=== PATIENT | male | born 1945 | race Caucasian/White ===

== ENCOUNTER → 2016-06-11 | Outpatient (CLI) | payer OTHER ==
[~2016-06-11] MED LIST: ACET-1311 PO; ASPI81TA28 PO; CIPR-255 PO; IBUP-1427 PO; LEVO125T72 PO; OMEG10007 PO; PHEN-876 PO
--- NOTE | 2016-06-11 10:58 | DIAGNOSTIC IMAGING REPORT ---
RENAL ULTRASOUND HISTORY: Hematuria PAINLESS HEMATURIA, HX SMOKING COMPARISON: None. FINDINGS: Right kidney: Maximum dimension 11.4 cm. No evidence for hydronephrosis. Left kidney: Maximum dimension 11.7 cm. No evidence for hydronephrosis. Normal corticomedullary differentiation and cortical thickness. Bladder: Polyp versus sludge ball/hematoma posterior aspect of the bladder. Mild bladder wall trabeculation. IMPRESSION: 1. Normal renal ultrasound. 2. Possible polypoid lesion posterior bladder wall versus debris/sludge. 3. Cystoscopy is suggested 4. Mild bladder wall trabeculation Electronically signed by: Christian Gardner M.D. 06/11/2016 10:56 AM Dictated Date/Time: 06/11/2016 10:54 AM
== END | disposition home or self-care (01) ==
LOC: C.ULTR 10:15
PROVIDERS: ATTEND Nurse Practitioner Family
DX: R31.9 Hematuria, unspecified (principal)

== ENCOUNTER 2016-07-08 11:45 | Day surgery (SDC) | payer OTHER ==
[2016-06-25 08:44] VITALS: BMI 27.0
--- NOTE | 2016-06-25 09:19 | PAT Medication Instructions ---
Service Date Jun 25, 2016. Current Home Medication List Levothyroxine Sodium (Synthroid), 125 MCG PO QAM Medication Instructions For Your Scheduled Surgery - Take the following medications the morning of surgery with a sip of water: Levothyroxine Sodium (Synthroid), 125 MCG PO QAM If you have any questions please call us at [phone] or [phone] ( [place]) or [phone]
[2016-06-25 09:47] LABS: URINE APPEARANCE CLEAR (CLEAR); URINE BILIRUBIN NEG (NEG); URINE COLOR YELLOW; URINE NITRITE NEG (NEG); URINE PH 5.5 (4.5-7.5); UROBILINOGEN NEG (NEG)
[2016-06-25 09:48] LABS: BASO % 0.3 %; BASO ABS # 0.02 K/uL (0-0.2); COMPLETE YES; EOS % 1.7 %; HEMATOCRIT 42.1 % (42-52); IG% 0.2 %; LYMPH % 37.2 %; LYMPH ABS # 2.43 K/uL (1.2-3.4); MEAN CELL VOLUME 92.1 fL (80-100); MEAN CORPUSCULAR HEMOGLOBIN 31.9 pg (25-34); MEAN CORPUSCULAR HGB CONC 34.7 g/dl (32-36); MEAN PLATELET VOLUME 10.6 fL (7.4-10.4); MONO % 5.1 %; NEUT % 55.5 %; PLATELET COUNT 187 K/uL (130-400); RED BLOOD COUNT 4.57 M/uL (4.7-6.1); WHITE BLOOD COUNT 6.53 K/uL (4.8-10.8)
[2016-06-25 09:50] LABS: MANUAL MICROSCOPIC REQUIRED? NO; REVIEW REQ? NO
--- NOTE | 2016-06-25 09:56 | DIAGNOSTIC IMAGING REPORT ---
CHEST PREADMISSION(PA/LAT) CLINICAL HISTORY: Preoperative chest COMPARISON STUDY: 02/25/2013 FINDINGS: The cardiac and mediastinal contours are normal. There is no evidence of focal pulmonary consolidation. There is no evidence of failure. No pleural effusions are visualized.[ IMPRESSION: No active disease in the chest. Electronically signed by: Serjio Rojo M.D. 06/25/2016 9:54 AM Dictated Date/Time: 06/25/2016 9:50 AM
[2016-06-25 10:16] LABS: CALCIUM 8.7 mg/dl (8.5-10.1); CREATININE 1.1 mg/dl (0.60-1.40); POTASSIUM 3.8 mmol/L (3.5-5.1)
[~2016-07-08] VITALS: Ht 180.3 cm; Wt 90.4 kg
[~2016-07-08 11:45] MED LIST changes: -ACET-1311 PO; -ASPI81TA28 PO; +ATROPINE SULFATE 0.1 MG/ML 5ML SYR IV PRN; -CIPR-255 PO; +CIPROFLOXACIN / D5W 400 MG IV SCH; +CIPROFLOXACIN 400MG / D5W IV SCH; +EpHEDrine SULFATE INJ 50 MG/ML AMP IV PRN; +FENTANYL CITRATE INJ 50 MCG/1 ML 2 ML VIAL IV PRN; +HYDROmorphone INJ 1 MG/ML SYR IV PRN; -IBUP-1427 PO; +LABETALOL HCL IV 5 MG/ML 20ML IV PRN; +LACTATED RINGER'S 1000ML 1,000 ML IV SCH; +MEPERIDINE HCL 25 MG/ML CARP IV PRN; -OMEG10007 PO; +ONDANSETRON INJ 2 MG/ML 2 ML VIAL IV PRN; -PHEN-876 PO
[2016-07-08 12:01] VITALS: BP 147/80; PULSE 54; TEMP 36.6; O2SAT 96; Ht 180.3 cm; Wt 90.4 kg
[2016-07-08] MEDS ORDERED: DEXAMETHASONE SOD INJ 4 MG/ML VIAL ONE (14:16)
[2016-07-08] MEDS ORDERED: PROPOFOL IV EMULSION 10 MG/ML 20 ML VIAL IV ONE (14:16)
[2016-07-08] MEDS ORDERED: LIDOCAINE HCL 2% 2 ML VIAL (20MG/ML) ONE (14:16)
[2016-07-08] MEDS ORDERED: ONDANSETRON INJ 2 MG/ML 2 ML VIAL ONE (14:16)
[2016-07-08] MEDS ORDERED: MIDAZOLAM HCL 1 MG/ML 2ML VIAL ONE (14:16)
[2016-07-08] MEDS ORDERED: FENTANYL CITRATE INJ 50 MCG/1 ML 2 ML VIAL ONE (14:17)
--- NOTE | 2016-07-08 14:17 | History & Physical Bridge Note ---
H&P Re-Evaluation Bridge Note: I have examined the patient, reviewed the History & Physical and in the interval since the performance of the History & Physical I have noted the following changes of clinical significance: No changes noted
--- NOTE | 2016-07-08 15:05 | [facility] Post Operative Brief Note ---
Immediate Operative Summary Operative Date Jul 08, 2016. 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 small central stalk connecting the tumor to the bladder wall. No secondary tumors appreciated. High bladder neck with moderate obstruction from the prostate. Tight meatus/ fossa navicularis. Specimens Bladder tumor - routine pathology Drains none Anesthesia Gen Complication(s) None Disposition Recovery Room / PACU (stable)
[2016-07-08] MEDS ORDERED: PHEN-876 PO (15:06)
[2016-07-08] MEDS ORDERED: CIPR-255 PO (15:06)
[2016-07-08] MEDS ORDERED: SODIUM CHLORIDE 0.9% 1000ML 1,000 ML IV SCH (15:07)
[2016-07-08] MEDS ORDERED: PHENAZOPYRIDINE HCL 200 MG TAB PO STA (15:07)
--- NOTE | 2016-07-08 15:07 | Discharge Instructions ---
Discharge Instructions Date of Service Jul 08, 2016. Admission Reason for Admission: Bladder Tumor Discharge Discharge Diagnosis / Problem: Treat bladder tumor. Discharge Goals Goal(s): Decrease discomfort, Improve function, Increase independence, Improve disease control, Prevent Disease Progression Activity Recommendations Activity Limitations: resume your previous activity Lifting Limitations: none Exercise/Sports Limitations: none May Resume Sexual Activity: when tolerated Shower/Bathe: no limitations Driving or Machine Use: no limitations . Instructions / Follow-Up Instructions / Follow-Up Please keep your previously scheduled follow up appointment with Dr. Cuevas Discharge Diet Recommended Diet: Regular Diet Procedures Procedures Performed: cystoscopy; TURBT Pending Studies Studies pending at discharge: no Medical Emergencies . Who to Call and When: Medical Emergencies: If at any time you feel your situation is an emergency, please call 911 immediately. . Non-Emergent Contact Non-Emergency issues call your: Urologist Call Non-Emergent contact if: you have a fever, temperature is above 101.5, your pain is not controlled, your pain is worsening . . "Provider Documentation" section prepared by Williams Carlisle. VTE Core Measure Inpt VTE Proph given/why not?: Treatment not indicated
[2016-07-08] MEDS ORDERED: OXYCODONE/ACETAMINOPHEN 5-325 TAB PO PRN ×2 (15:15)
--- NOTE | 2016-07-08 15:49 | Anesthesiology Progress Note ---
Anesthesia Post Op Note Date & Time Jul 08, 2016 at 15:49 Vital Signs Pain Intensity: 0 Vital Signs Past 12 Hours Date Time Temp Pulse Resp B/P Pulse Ox O2 Delivery O2 Flow Rate FiO2 07/08/16 15:40 56 16 133/83 98 Room Air 07/08/16 15:31 64 16 170/84 95 Room Air 07/08/16 15:21 63 16 139/74 100 Mask 10 07/08/16 15:14 36.4 58 14 138/72 100 Mask 10 07/08/16 12:01 36.6 54 18 147/80 96 Room Air Notes Mental Status: alert / awake / arousable, participated in evaluation Pt Amnestic to Procedure: Yes Nausea / Vomiting: adequately controlled Pain: adequately controlled Airway Patency, RR, SpO2: stable & adequate BP & HR: stable & adequate Hydration State: stable & adequate Anesthetic Complications: no major complications apparent
[2016-07-08 15:55] VITALS: BP 133/81; PULSE 59; TEMP 36.5; O2SAT 95
[2016-07-08] MEDS ORDERED: EpHEDrine SULFATE INJ 50 MG/ML AMP IV PRN (16:00)
[2016-07-08] MEDS ORDERED: ATROPINE SULFATE 0.1 MG/ML 5ML SYR IV PRN (16:00)
[2016-07-08 16:30] VITALS: BP 160/72; PULSE 64; TEMP 36.8; O2SAT 96
--- NOTE | 2016-07-08 16:46 | OPERATIVE REPORT ---
DATE OF OPERATION: 07/08/2016 PREOPERATIVE DIAGNOSIS: Bladder tumor. POSTOPERATIVE DIAGNOSIS: Bladder tumor. PROCEDURE PERFORMED: Cystoscopy, transurethral resection of medium bladder tumor. ANESTHESIA: General. ESTIMATED BLOOD LOSS: Zero. URINE OUTPUT: Not recorded. SPECIMENS: Bladder tumor for routine pathology. DRAINS: There were no drains. COMPLICATIONS: There were no complications. DESCRIPTION OF THE PROCEDURE: Andres Valentine was identified in the preoperative holding area. Appropriate informed consents were reviewed and completed and the patient was transported to the operating suite. Upon arrival, he received appropriate preoperative antibiotics in the form of ciprofloxacin and general anesthesia. He was placed in dorsal lithotomy position where he was sterilely prepped and draped in standard fashion. I began the case by gently attempting to insert a 24-Uzbek resectoscope with 30 degree lens and visual obturator. His meatus was slightly tight and required gentle dilation to be able to allow the scope to pass. I subsequently passed without difficulty. He had no other strictures within the urethra. His prostate was relatively enlarged with a very high bladder neck, but no significant intravesical median lobe. Full inspection of the bladder was carried out at that time with an easily identified papillary tumor arising from the right lateral wall approximately 1 cm lateral to the right ureteral orifice continued along the same line as the trigonal ridge. There did not appear to be any other satellite or secondary tumors visible at any point throughout the bladder and at the base of this tumor was able to visualize a relatively narrow stalk that was leading to the tumor itself despite the fact that the papillary portion was quite broad. Following my full inspection, I exchanged the visual obturator for a resecting loop and I was able to place this loop against the base of the trunk of the tumor and resected flush with the bladder. I fulgurated the base of this and I inspected the bladder after irrigating all bladder tumor out of the bladder. There were no other tumors appreciated. The tumor appeared to be treated entirely. There was no encroachment upon the ureteral orifice. There was excellent hemostasis throughout. At that time, I took pictures to document the post-resection appearance, I had previously had taken pictures to document pre-resection appearance, I emptied the bladder completely and withdrew the scope. The patient was reversed from anesthesia and taken to the PACU in stable condition. There were no complications. I attest to the content of the Intraoperative Record and any orders documented therein. Any exceptions are noted below. MTDD
[2016-07-08 16:50] VITALS: BP 162/75; PULSE 63; TEMP 36.3; O2SAT 98
[2016-07-08] MEDS ORDERED: TAMSULOSIN HCL 0.4 MG CAP PO SCH (21:00)
== END 2016-07-08 17:00 | disposition home or self-care (01) ==
LOC: C.ACU 11:45
PROVIDERS: ATTEND Urology
DX: C67.2 Malignant neoplasm of lateral wall of bladder (principal); Z87.891 Personal history of nicotine dependence

== ENCOUNTER 2024-02-21 12:19 | Inpatient (IN) ==
--- OUTSIDE RECORDS SUMMARY | 2024-02-21 12:24 | External Medical Summary | Continuity of Care Document ---
Author Name Unknown Organization [facility] [address] [facility] Address [address] [place], [place] [id number] Care Team Providers Care Rn Staff Name Role Phone Melissa Lawson Primary Care Physician [phone] Encounter [facility] [id number] Date(s): 02/16/24 - 02/16/24 [facility] [address], [address] [place] [address] [phone] Encounter Diagnosis Afib(Discharge Diagnosis) - 02/16/24 Aortic valve stenosis, severe(Discharge Diagnosis) - 02/16/24 Coronary artery disease involving stebbins heart(Discharge Diagnosis) - 02/16/24 Dyslipidemia(Discharge Diagnosis) - 02/16/24 S/P CABG x 4(Discharge Diagnosis) - 02/16/24 S/P aortic valve replacement with tissue(Discharge Diagnosis) - 02/16/24 HTN (hypertension)(Discharge Diagnosis) - 02/16/24 PAF (paroxysmal atrial fibrillation)(Discharge Diagnosis) - 02/16/24 Discharge Disposition: Home or Self Care Attending Physician: DO Butler Jason D Allergies, Adverse Reactions, Alerts Substance Criticality Severity Reaction Reaction Severity Status thimerosal topical A ctive benzalkonium chloride topical Active Allergy Not found in Search 1 red onions hives hot dogs Active 1Rash Assessment and Plan Extracted from: Title:Cardiology Office Visit Note Author:DO Butler Jason D Date:02/16/24 1.Afib 2.Aortic valve stenosis, severe 3.Coronary artery disease involving stebbins heart 4.Dyslipidemia 5.HTN (hypertension) 6.S/P aortic valve replacement with tissue 7.S/P CABG x 4 He is in sinus rhythm on his EKG post maze procedure during his AVR CABG. We discussed the importance of remaining on warfarin for the next 3 months. At that point he can wear an event recorder for a month and if he has no A-fib we can discuss stopping his warfarin. I did discuss with him though even if he has no A-fib over that 30-day. That does not mean he is not having any asymptomatic A-fib that increases his risk of cardioembolic events. He is rather adamant he wants to come off warfarin. We discussed the importance of 81 mg of aspirin. We also discussed the importance of statin therapy. He does not wish to consider statins at this point. We discussed red yeast rice as an option as well as oatmeal, flaxseed, and Metamucil. His seems agreeable to make the dietary changes. We discussed lifting restrictions including 10 pounds for the first 6 weeks and 20 pounds for the second 6 weeks. We discussed no shoveling snow long-term. We also discussed he will need antibiotics prior to the dentist and should not visit the dentist for the next 90 days. His blood pressure was on the higher side today. He does not wish to restart his valsartan at this point. I will see him back in 3 weeks and if his blood pressures are elevated will initiate valsartan at that point and revisit the need for cholesterol-lowering therapy. We discussed the importance of a flu shot, COVID booster, and RSV vaccination. He did not wish to proceed with this at this time. We had a long discussion with regards to the fact that he went through a major surgery with upfront risk and our goal is to reduce the risk of long-term complications. We discussed the importance of medical therapy with regards to that. I discussed with him 1 would hate to go through big surgery and need angioplasty and stenting in the next couple of years because he was unwilling to take an appropriate cardiac regiment. I discussed with him he should not start cardiac rehab for another 2 to 3 weeks until he completes physical therapy at home. Will send his information to [facility] as it is taking about a month to get people enrolled. See him back in 3 weeks with repeat laboratory studies including a hemoglobin and iron profile given the fact that his hemoglobin was 9.9 when he left and was as low as the 70s before he received a blood transfusion. Although he has some shortness of breath his lungs were clear and clinically he did not look like he was in heart failure. Immunizations Given and Recorded Vaccine Date Status Refusal Reason influenza virus vaccine, inactivated 04/10/22 Timothy rded influenza virus vaccine, inactivated 02/28/21 Timothy rded influenza virus vaccine, inactivated 02/07/20 Timothy rded SARS-CoV-2 mRNA (Pfizer 12+) bivalent 1 04/10/22 R ecorded SARS-CoV-2 (COVID-19) mRNA BNT-162b2 vax 02/28/21 Recorded SARS-CoV-2 (COVID-19) mRNA BNT-162b2 vax 06/17/20 Recorded SARS-CoV-2 (COVID-19) mRNA-1273 vaccine 05/27/20 R ecorded zoster vaccine, inactivated 11/04/18 Recorded zoster vaccine, inactivated 2 06/04/18 Recorded tetanus/diphtheria/pertuss, acel (Tdap) 10/04/13 G iven 1Result Comment: 2022-04-10: Historical information-source unspecified 2Result Comment: 2018-07-07: Historical information-source unspecified Medications aspirin 81 mg oral delayed release tablet Start: 02/09/24 8:29:00 AM EDT, 1 tab, PO, Daily Start Date: 02/09/24 Status: Ordered levothyroxine 125 mcg (0.125 mg) oral tablet Start: 10/13/23 9:30:00 AM EDT, 1 tab, PO, Daily, Disp# 90 tab, Refills: 3, Pharmacy: [facility] [id number] Start Date: 10/13/23 Status: Ordered warfarin 5 mg oral tablet Start: 03/20/23 10:47:00 AM EST, 1 tab, PO, Daily Start Date: 03/20/23 Status: Ordered Mental Status 02/16/24 Barriers to Learning one year None evide nt Mandatory Health Literacy Documentation Yes Health Literacy Communication Barriers N ever Primary Language [place] Problem List Condition Confirmation Course Effective Dates Status H ealth Status Informant Aortic stenosis Confirmed Active Afib Confirmed Active Carotid artery plaque Confirmed Active Coronary artery disease involving stebbins heart Confirmed Active Osteoarthritis of knee Confirmed Active Atypical rash Confirmed Active Ganglion/synovial cyst - ankle/foot Confirmed Active S/P CABG x 4 Confirmed Active S/P aortic valve replacement with tissue Confirmed Active Dyslipidemia Confirmed Active HTN (hypertension) Confirmed Active Hypothyroidism Confirmed Active Myalgia Confirmed Active Aortic valve stenosis, severe Confirmed Active Tobacco user Confirmed Active Diagnosis Diagnosis Type Effective Dates Health Status Clinical Service Informant Aortic valve stenosis, severe Discharge Diagnosis 02/16/24 Afib Discharge Diagnosis 02/16/24 HTN (hypertension) Discharge Diagnosis 02/16/24 Coronary artery disease involving stebbins heart Discharge Diagnosis 02/16/24 S/P CABG x 4 Discharge Diagnosis 02/16/24 PAF (paroxysmal atrial fibrillation) Discharge Diagnosis 02/16/24 Non-Specified Dyslipidemia Discharge Diagnosis 02/16/24 S/P aortic valve replacement with tissue Discharge Diagnosis 02/16/24 Procedures Procedure Date Related Diagnosis Body Site Status Colonoscopy 1, 2 11/18/16 Complete d Cystoscopy and transurethral resection of bladder tumor 07/08/16 Completed s/p thyroidectomy 3 1966 Compl eted Ankle- right - bone spur 4 Completed Arthroscopy of knee- right 5 Completed Colonoscopy Completed R pointer/index finger right index finger fusion 6 Completed 1PATHOLOGY: 1. rectum, polypectomy: hyperplastic polyps 2- Diverticulosis in the sigmoid colon. - Non-bleeding internal hemorrhoids. - One 3 mm polyp in the rectum, removed with a cold biopsy forceps. Resected and retrieved. [id number] nodule 4right 5cannot remember date or knee 6right index finger fusion Vital Signs Most recent to oldest [Reference Range]: 1 Patient Weight 92.2 kg (02/16/24 9:17 AM) Heart Rate 66 bpm (02/16/24 9:17 AM) Blood Pressure 128/60mmHg (02/16/24 9:17 AM) BP Location # 1 Left Arm (02/16/24 9:17 AM) Social History Social History Type Response Tobacco Former smoker, Cigar ettes 1 Smoking Status Former Smoker, quit > 1 yr Sex Male Sex Representation Male (finding) 1Quit 10-15 years ago. Implantable Device List Procedure Provider Procedure Date Device Type Site Unknown Unknown 02/03/24 Unknown Unknown Device Identifier Serial Number Lot or Batch Number Manufacturing Date Expiration Date Distinct Identification Code MRI Safety Implantable Status Assigning Authority Unknown Unknown [id number] Unknown 06/19/26 Unknown Unknown Active Unkno wn Unknown Unknown n/a Unknown 01/26/27 Unknown Unknown Active Unkn own EKG study * Contributor_system, MUSE01: VERIFY, PERFORM Event Display: EKG Authored Date: [id number] Please click on link to see image. Cardiology Outpatient Note * DO Butler Jason D: PERFORM Event Display: Cardiology Outpt Note Authored Date: [id number] Primary Care Provider MD Renny, Melissa Arrington Chief Complaint f/u cabg avr 02/03/24 History of Present Illness He was 2 weeks out from bypass surgery today when I saw him. He actually looks better than what 1would anticipate. He denies any chest pain or chest pressure. He has shortness of breath with activity but his wifeconfirms she thinks that this is getting better. He denies any orthostatic symptoms. He has a little bit of swelling in his left leg from his veinharvest site. He has no fevers or chills or sweats. His incisions are intact without any drainage or erythema. He is unaware of any palpitations or fluttering. As you remember though his A- fib was asymptomatic before surgery. He is in sinus rhythm today on his EKG. He denies any significant orthopnea sleeping to pillows. He is walking with a walker. He was quite disgruntled with his care at [facility]hab but felt like his care at [facility] was excellent. He stopped all his on his own medications except for Synthroid and warfarin. Review of Systems PMHX: 1. s/p Bio AVR (27mmMagna Easevalve), CABG x4 (HAMPTON-LAD, SVG-PDA, SVG-OM, SVG-Diag), QUITA clip and MAZEon 01/2024 1b. PREOP CATH: 60% lesion in the Proximal LAD. 90% lesion in the Mid LAD; 80% lesion in the 1st Diagonal; Circumflex: 90% lesion in the 1st Marginal; 60% lesion in the Proximal RCA, 50% lesion in the Mid RCA, 50% lesion in the Distal RCA 1CSevere aortic stenosis (09/2023) with NML LV fxn; NML PA Pressure 2. Hyperlipidemia. 3. Hypertension. 4. Osteoarthritis. 5. History of marijuana use (ongoing) and prior smoking history, quitting over 10 year's ago. 6. Severe symptomatic myalgia secondary to statin therapy. 7. Negative Carotid 2021 8. Asymptomatic PAF on Event Recorder on Coumadin Physical Exam Vitals & Measurements HR:66(Monitored) BP:128/60 SpO2:98% WT:92.200kg(Dosing) WT:92.2kg Patient is awake alert and oriented x3and in no acute distress HEENT:2+ carotid upstrokes, no evidence of carotid bruits LUNGS:Clear to auscultation bilaterally no rales rhonchi or wheezing HEART:Regular rate and rhythm; There was a soft early 2 out of 6 systolic ejection murmur EXTREMITIES:No evidence of clubbing or cyanosis; He had mild swelling of the left leg. There was no significant erythema around his vein harvest site PSYCHIATRIC:Patient's affect appeared appropriate Skin: He has some ecchymosis and bruising from the hospital. His median sternotomy and chest tubesites look clean without any drainage or erythema. EKG today sinus rhythm nonspecific T wave changes Diagnostic Results Coronary Arteries: Diagnostic Findings: Left Main: The left main coronary artery arises from the left sinus of Valsalva, is a large calibervessel and mildly diseased. It gives rise to the LAD and Circumflex. LAD: The left anterior descending coronary artery arises from the left main. It terminates at the apex. The Proximal LAD is medium in size and mildly calcified. There is a 60% lesion in the Proximal LAD. The Mid LAD is medium in size and mildly calcified. There is a 90% lesion in the Mid LAD. The Distal LAD is small in size, mildly diseased, and mildly tortuous. The 1st Diagonal is medium in size. There is an 80% lesion in the 1st Diagonal. There is a 95% lesion in the 1st Diagonal. Circumflex: The circumflex coronary artery arises from the left main. The Proximal Circumflex is medium in size and mildly diseased. The Mid Circumflex is medium in size and mildly diseased. The Distal Circumflex is small in size, mildly diseased, and mildly tortuous. The 1st Marginal is medium in size. There is a 90% lesion in the 1st Marginal. RCA: The right coronary artery arises from the right sinus of Valsalva. The Proximal RCA is large in size. There is a 60% lesion in the Proximal RCA. The Mid RCA is large in size. There is a 50% lesion in the Mid RCA. The Distal RCA is large in size. There is a 50% lesion in the Distal RCA. The Right PDA is large in size and mildly diseased. The 1st RPL is medium in size and mildly diseased. The Acute Marginal is small in size and mildly diseased. Coronary Dominance: Right Assessment/Plan 1.Afib 2.Aortic valve stenosis, severe 3.Coronary artery disease involving stebbins heart 4.Dyslipidemia 5.HTN (hypertension) 6.S/P aortic valve replacement with tissue 7.S/P CABG x 4 He is in sinus rhythm on his EKG post maze procedure during his AVR CABG. We discussed the importance of remaining on warfarin for the next 3 months. At that point he can wear an event recorder for a month and if he has no A-fib we can discuss stopping his warfarin. I did discuss with him though even if he has no A-fib over that 30-day. That does not mean he is not having any asymptomaticA-fib that increases his risk of cardioembolic events. He is rather adamant he wants to come off warfarin. We discussed the importance of 81 mg of aspirin. We also discussed the importance of statin therapy. He does not wish to consider statins at this point. We discussed red yeast rice as an optionas well as oatmeal, flaxseed, and Metamucil. His seems agreeable to make the dietary changes. We discussed lifting restrictions including 10 pounds for the first 6 weeks and 20 pounds for the second 6 weeks. We discussed no shoveling snow long-term. We also discussed he will need antibiotics prior to the dentist and should not visit the dentist for the next 90 days. His blood pressure was on the higher side today. He does not wish to restart his valsartan at this point. I will see him back in 3 weeks and if his blood pressures are elevated will initiate valsartan at that point and revisit the need for cholesterol-lowering therapy. We discussed the importance of a flu shot, COVID booster, and RSV vaccination. He did not wish toproceed with this at this time. We had a long discussion with regards to the fact that he went through a major surgery with upfrontrisk and our goal is to reduce the risk of long-term complications. We discussed the importance of medical therapy with regards to that. I discussed with him 1 would hate to go through big surgery and need angioplasty and stenting in the next couple of years because he was unwilling to take an appropriate cardiac regiment. I discussed with him he should not start cardiac rehab for another 2 to 3 weeks until he completes physical therapy at home. Will send his information to [facility] as it is taking about a month to get people enrolled. See him back in 3 weeks with repeat laboratory studies including a hemoglobin and iron profile given the fact that his hemoglobin was 9.9 when he left and was as low as the 70s before he received a blood transfusion. Although he has some shortness of breath his lungs were clear and clinically he did not look like he was in heart failure. Problem List/Past Medical History Ongoing Afib Aortic stenosis Aortic valve stenosis, severe Atypical rash Carotid artery plaque Coronary artery disease involving stebbins heart Dyslipidemia Ganglion/synovial cyst - ankle/foot HTN (hypertension) Hypothyroidism Myalgia Osteoarthritis of knee S/P aortic valve replacement with tissue S/P CABG x 4 Tobacco user Resolved Aortic heart murmur Shoulder pain Well adult exam Procedure/Surgical History Colonoscopy| Service Date: 11/18/2016Cystoscopy and transurethral resection of bladder tumor|Service Date: 07/08/2016s/p thyroidectomy| Service Date: 1966ColonoscopyAnkle- right - bone spurArthroscopy of knee- rightR pointer/index finger right index finger fusion Medications aspirin(aspirin 81 mg oral delayed release tablet), 81 mg= 1 tab, PO, Daily levothyroxine(levothyroxine 125 mcg (0.125 mg) oral tablet), 1 tab, PO, Daily, 3 refills warfarin(warfarin 5 mg oral tablet), 5 mg= 1 tab, PO, Daily Allergies Allergy Not found in Searchred onions, hives, hot dogs benzalkonium chloride topical thimerosal topical Social History Smoking Status Former Smoker, quit > 1 yr Alcohol Use:Current Type:Beer Frequency:1-2 times per week 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 Family History Cancer: Mother. Heart attack: Father, Brother, Paternal Uncle and Paternal Uncle. 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
--- OUTSIDE RECORDS SUMMARY | 2024-02-21 12:24 | External Medical Summary | Continuity of Care Document ---
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) - 02/12/24 S/P CABG x 4(Discharge Diagnosis) - 02/12/24 Aortic valve stenosis, severe(Discharge Diagnosis) - 02/12/24 S/P aortic valve replacement with tissue(Discharge Diagnosis) - 02/12/24 Body mass index [BMI] 29.0-29.9, adult(Discharge Diagnosis) - 02/18/24 Discharge Disposition: Home or Self Care Attending Physician: LUIS Rader Michelle L Referring Physician: DO Butler Jason D Allergies, Adverse Reactions, Alerts Substance Criticality Severity Reaction Reaction Severity Status thimerosal topical A ctive benzalkonium chloride topical Active Allergy Not found in Search 1 red onions hives hot dogs Active 1Rash Assessment and Plan Extracted from: Title:CABG pos top Surgery O ffice Visit Note Author:LUIS Rader Michelle L Date:02/18/24 1.Coronary artery disease involving lovelock heart Status: chronic condition, stable Consume a healthy diet, with an emphasis on vegetables, fruits, nuts, whole grains, lean vegetable or animal protein and fish. Further, minimize intake of trans fats, processed meats, refined carbohydrates, and sugar-sweetened beverages. Engage in at least 150 minutes per week of accumulated moderate intensity or 75 minutes per week of vigorous intensity physical activity. Avoid all tobacco use. The AHA 2020 dietary guidelines do not recommend initiation or consumption of low amounts of alcohol in an effort to improve cardiovascular outcomes. If one does consume alcohol, it is recommended to have no more than 1 drink per day for women and 2 drinks per day for men. 2.S/P CABG x 4 HAMPTON-LAD, SVG-PDA, SVG-OM, SVG-Diag Anti-plateletaspirin 81mg daily Beta patsy: He declines to take (see Dr. Butler's detailed office visit note from 02/16/2024). Lipid lowering agentcontraindicated due to:reported allergy/intolerance. Dr. Butler has addressed this with him. His says they have "a plan" but says she's working with Dr. Butler on this matter. Per [place] [employer] scientific statement, unless contraindicated, ASA 81mg should be continued indefinitely to reduce graft occlusion and adverse cardiac events. Medications reviewed, taking as prescribed. Continue to increase activity. Use ISB as instructed at discharge. Follow up with cardiology Dr. Butler on03/09/2024 and as scheduled. Follow up with primary care provider Dr. Lawson on 03/12/[address] Lamar on . Encouraged participation in cardiac rehab, beginning 6 weeks after surgery. Per cardiac rehab: face sheet, referral and discharge summary to the cardiac rehab dept at [facility], received fax confirmation. [1] Reminded patientno driving for at least 4 weeks after surgery andlifting restriction of no more than 10 pounds for 6 weeks after surgery and no more than 20 pounds for a total of 12 weeks after surgery. Continue to monitor vital signs, incision sitesand contact us with any issues. All questions satisfactorily answered and patientstated understanding of today's discussion. Follow up with CT surgery via telephone on 03/19/2024. 3.Aortic valve stenosis, severe Status: chronic, improved after surgery 4.S/P aortic valve replacement with tissue 27mmMagna Easevalve Prophylaxis againstinfectious endocarditisis reasonable before dental procedures that involve manipulation of gingival tissue, manipulation of the periapical region of teeth, or perforation of the oral mucosa in patientswithprosthetic materials used forcardiac valve repair or replacement.Maintenance of the best oral hygiene to minimizebacterialseedingis imperative. Per 2020 ACC/AHA guidelines,a TTE with Doppler measurements of transvalvular velocities should beobtained six weeks to three months after prosthetic valve implantation (when the hemoglobin has normalized) is helpful to establish a baseline for future comparison. Monitoring by TTE starting five years after implantation of a bioprosthetic valve is recommended,due to the risk of valve degeneration. If the valve function is normal, it can be repeated at 10 years and then yearly thereafter. However, in patients with risk factors for early deterioration (renal failure, diabetes, and implantation at younger ages), it is reasonable to start annualmonitoring at five years. On going monitoringof valve function will be deferred to cardiology. Immunizations Given and Recorded Vaccine Date Status [...] Daily, Disp# 90 tab, Refills: 3, Pharmacy: [facility] [id number] Start Date: 10/13/23 Status: Ordered warfarin 5 mg oral tablet Start: 03/20/23 10:47:00 AM EST, 1 tab, PO, Daily Start Date: 03/20/23 Status: Ordered Mental Status 02/18/24 Barriers to Learning one year None evide nt Mandatory Health Literacy Documentation Yes Health Literacy Communication Barriers N ever Primary Language Tanzanian Problem List Condition Confirmation Course Effective Dates Status H ealth Status Informant Aortic stenosis Confirmed Active Afib Confirmed Active Carotid artery plaque Confirmed Active Coronary artery disease involving lovelock heart Confirmed Active Osteoarthritis of knee Confirmed [...] Effective Dates Health Status Clinical Service Informant Coronary artery disease involving lovelock heart Discharge Diagnosis 02/12/24 Non-Specified S/P CABG x 4 Discharge Diagnosis 02/12/24 Non-Specified Aortic valve stenosis, severe Discharge Diagnosis 02/12/24 Non-Specified S/P aortic valve replacement with tissue Discharge Diagnosis 02/12/24 Non-Specified Body mass index [BMI] 29.0-29.9, adult Discharge Diagnosis 02/18/24 Non-Specified Procedures Procedure Date Related Diagnosis Body Site Status Colonoscopy 1, 2 11/18/16 Complete d Cystoscopy and transurethral resection of bladder tumor 07/08/16 Completed s/p thyroidectomy 3 1967 Compl eted Ankle- right - bone spur 4 Completed Arthroscopy of knee- right 5 Completed Colonoscopy Completed R pointer/index finger right index finger fusion 6 Completed 1PATHOLOGY: 1. rectum, polypectomy: hyperplastic polyps 2- Diverticulosis in the sigmoid colon. - Non-bleeding internal hemorrhoids. - One 3 mm polyp in the rectum, removed with a cold biopsy forceps. Resected and retrieved. [id number] nodule 4right 5cannot remember date or knee 6right index finger fusion Vital Signs Most recent to oldest [Reference Range]: 1 Height 179 cm (02/18/24 1:38 PM) Patient Weight 95.2 kg 1 (02/18/24 1:38 PM) Body Mass Index 29.71 kg/m2 (02/18/24 1:38 PM) Temperature [36.5-37.9 DegC] 36.7 DegC (02/18/24 1:38 PM) Heart Rate 81 bpm (02/18/24 1:38 PM) Respiratory Rate 14 br/min (02/18/24 1:38 PM) Blood Pressure 126/50mmHg (02/18/24 1:38 PM) Cuff Pulse Pressure 76 mmHg (02/18/24 1:38 PM) BP Location # 1 Right Arm (02/18/24 1:38 PM) 1Result Comment: with shoes Social History Social History Type Response Tobacco [...] Safety Implantable Status Assigning Authority Unknown Unknown [id number] Unknown 06/19/26 Unknown Unknown Active Unkno wn Unknown Unknown n/a Unknown 01/26/27 Unknown Unknown Active Unkn own Cardiac surgery Outpatient Note * LUIS aRder, Prerna Arrington: PERFORM, MODIFY, MODIFY Event Display: Cardiac Surgery Outpt Note Authored Date: [id number] Primary Care Provider MD Renny, Melissa Arrington Referring Provider DO Butler Jason D Chief Complaint s/p CABG pt denies cp pt states so wtih excertion it is getting better, has some swellingin left leg wher the vein was taken History of Present Illness Here today in scheduled follow up after surgery by Dr. Griffiths 02/03/2024: Preoperative Diagnosis Atherosclerotic heart disease of lovelock coronary artery without angina pectoris CAD HTN HLD Severe, symptomatic aortic stenosis Atrial Fibrillation Current Smoker Operation BYPASS GRAFT CORONARY ARTERY WITH AORTIC, MEDIAN STERNOTOMY; CORONARY ARTERY BYPASS GRAFT X 4 USINGLEFT INTERNAL MAMMARY ARTERY AND ENDSCOPICALLY HARVESTED LEFT SAPHENOUS VEIN,AORTIC VALVE REPLACEMENT, RF ABLATION, LEFT ATRIAL APPENDAGE LIGATION USING 40MM ATRICURE CLIP Coronary artery bypass grafting times four(HAMPTON-LAD, SVG-PDA, SVG-OM, SVG-Diag) on cardiopulmonary bypass, Aortic Valve replacement with 27mmMagna Easevalve, intraoperative epiaortic ultrasound performance and interpretation, right leg endoscopic vein harvest, insertion of temporary ventricularpacing wire,Left atrial appendage Ligation with 40mmAtriclip, Left atrial box lesion maze withencompass clamp. [1] He required blood products in the post operative period due to anemia. [facility].He was seen by Dr. Frias 02/16/2024. I refer the reader to Dr. Butler'sdetailed office visit note regarding discussion of the need for medication compliance. He presents to clinic today with his . They both think he's recovering well. He still feels short of breath with activity but his sayshis breathing isalready much better than prior tosurgery. He's not been showering. I emphasized the need to shower and told him he should shower at least every other day. He's been sleeping in a recliner and admits he's been sleeping on his side. Iexplained the importance of remaining supine or slightly on his side(no more than 45 degrees) because he may have nonunion of the sternum if he doesn't. He said he now understands this and will stop sleeping on his side. He's not been walking much, only from chair/couch to kitchen. Dr. Nunez ins tructed him to walk 3 minutes at a time, 3 times a day. When this feels easy, increase time by one minute each interval. His says they are checking blood pressure and pulse every morning. She did not remember specific values. I told them to write down vital signs and take to next appointment with Dr. Butler. Dr. Nunez emphasized the need to take medications as prescribed and directed (including valsartan, statin medication). Review of Systems Constitutional symptoms: denies fever, chills Cardiovascular: denies chest pain, palpitations, syncope, orthopnea, paroxysmal nocturnal dyspnea, peripheral edema, no clicking, popping or instabilityof chest wall Respiratory: denies cough, wheezing, + shortness of breath with walking Gastrointestinal: denies nausea, constipation Genitourinary: denies dysuria Hematologic/Lymphatic: denies abnormal bleeding Physical Exam Vitals & Measurements T:36.7C HR:81(Monitored) RR:14 BP:126/50 SpO2:99% HT:179cm WT:95.200kg(Dosing) WT:95.2kg BMI:29.71 Vital signs as documented Constitutional:Well nourished, in no acute distress Skin:Warm, dry; surgical sites are healing without redness, swelling, drainage, excessive warmth;sternotomy surgical tape is removed today without difficulty Neck:No JVD. Chest:Clear to auscultation bilaterally, no use of accessory muscles, no clicking, popping or instability in chest wall Heart:RRR, norubs, gallops,or murmur. Extremities: +1 nonpitting peripheral edema of the left leg (side of EVH); using walker Assessment/Plan 1.Coronary artery disease involving lovelock heart Status: chronic condition, stable Consume a healthy diet, with an emphasis on vegetables, fruits, nuts, whole grains, lean vegetable or animal protein and fish. Further, minimize intake of trans fats, processed meats, refined carbohydrates, and sugar-sweetened beverages. Engage in at least 150 minutes per week of accumulated moderate intensity or 75 minutes per week ofvigorous intensity physical activity. Avoid all tobacco use. The AHA 2020 dietary guidelines do not recommend initiation or consumption of low amounts of alcohol in an effort to improve cardiovascular outcomes. If one does consume alcohol, it is recommended tohave no more than 1 drink per day for women and 2 drinks per day for men. 2.S/P CABG x 4 HAMPTON-LAD, SVG-PDA, SVG-OM, SVG-Diag Anti-plateletaspirin 81mg daily Beta patsy: He declines to take (see Dr. Butler's detailed office visit note from 02/16/2024). Lipid lowering agentcontraindicated due to:reported allergy/intolerance. Dr. Butler has addressed this with him. His says they have "a plan" but says she's working with Dr. Butler on this matter. Per [place] [employer] scientific statement, unless contraindicated, ASA 81mg should be continued indefinitely to reduce graft occlusion and adverse cardiac events. Medications reviewed, taking as prescribed. Continue to increase activity. Use ISB as instructed at discharge. Follow up with cardiology Dr. Butler on03/09/2024 and as scheduled. Follow up with primary care provider Dr. Lawson on 03/12/[address] Lamar on . Encouraged participation in cardiac rehab, beginning 6 weeks after surgery. Per cardiac rehab:face sheet, referral and discharge summary to the cardiac rehab dept at [facility], receivedfax confirmation. [1] Reminded patientno driving for at least 4 weeks after surgery andlifting restriction of no morethan 10 pounds for 6 weeks after surgery and no more than 20 pounds for a total of 12 weeks after surgery. Continue to monitor vital signs, incision sitesand contact us with any issues. All questions satisfactorily answered and patientstated understanding of today's discussion. Follow up with CT surgery via telephone on 03/19/2024. 3.Aortic valve stenosis, severe Status: chronic, improved after surgery 4.S/P aortic valve replacement with tissue 27mmMagna Easevalve Prophylaxis againstinfectious endocarditisis reasonable before dental procedures that involve manipulation of gingival tissue, manipulation of the periapical region of teeth, or perforation of the oral mucosa in patientswithprosthetic materials used forcardiac valve repair or replacement.Maintenance of the best oral hygiene to minimizebacterialseedingis imperative. Per 2020 ACC/AHA guidelines,a TTE with Doppler measurements of transvalvular velocities shouldbeobtained six weeks to three months after prosthetic valve implantation (when the hemoglobin hasnormalized) is helpful to establish a baseline for future comparison. Monitoring by TTE starting five years after implantation of a bioprosthetic valve is recommended,due to the risk of valve degeneration. If the valve function is normal, it can be repeated at 10 years and then yearly thereafter. However, in patients with risk factors for early deterioration (renalfailure, diabetes, and implantation at younger ages), it is reasonable to start annualmonitoring at five years. On going monitoringof valve function will be deferred to cardiology. Attestation I, Prerna Olivares PA-C, [id number] discrete time performing the activities of this visit. Dr. Nunez, the supervising physician spent zero minutes of discrete time performing the activities of this visit. The total visit time includes 9 minutes of shared time between the LUIS and physician. Activities mayinclude any or all of the following: - review of the medical record - obtaining a history - physical exam/evaluation - counseling/educating patient/family/caregiver - discussion/referral to other healthcare professionals - documenting care in the medical record - independent interpretation of results - communication of results to patient/family/caregiver - coordination of care Problem List/Past Medical History Ongoing Afib Aortic stenosis Aortic valve stenosis, severe Atypical rash Carotid artery plaque Coronary artery disease involving lovelock heart Dyslipidemia Ganglion/synovial cyst - ankle/foot HTN [...] Member(s) Family Member(s) Relationship: Mother, Age: Unknown Immunizations Vaccine Date Status influenza virus vaccine, inactivated 04/10/2022 Recorded SARS-CoV-2 mRNA (Pfizer 12+) bivalent 04/10/2022 Recorded Comments : 2022-04-10: Historical information-source unspecified influenza virus vaccine, inactivated 02/28/2021 Recorded SARS-CoV-2 (COVID-19) mRNA BNT-162b2 vax 02/28/2021 Recorded SARS-CoV-2 (COVID-19) mRNA BNT-162b2 vax 06/17/2020 Recorded SARS-CoV-2 (COVID-19) mRNA-1273 vaccine 05/27/2020 Recorded influenza virus vaccine, inactivated 02/07/2020 Recorded zoster vaccine, inactivated 11/04/2018 Recorded zoster vaccine, inactivated 06/04/2018 Recorded Comments : 2018-07-07: Historical information-source unspecified tetanus/diphtheria/pertuss, acel (Tdap) 10/04/2013 Given Recommendations Health Maintenance Pending(in the next year) OverDue Medicare Annual Wellness Visit due09/10/17and every 1year Adult Influenza Vaccine due10/19/23and every 1year Due Adult COVID-19 Vaccination due02/18/24Unknown Frequency Adult Tdap/Td Vaccine due02/18/24Unknown Frequency Hepatitis C Screening due02/18/24One-time only Pneumococcal Vaccine Older Adults due02/18/24One-time only Due In Future Adult Social Determinants of Health Screening not due until02/03/25and every day Satisfied(in the past 1 year) Satisfied Body Mass Index on02/18/24.Satisfied by CARLIN Jones Amanda Diagnostic Results (12/29/2023 cardiaccatheterization) Findings Coronary Arteries: Diagnostic Findings: Left Main: The [...] small in size and mildly diseased. Coronary Dominance:Right [2] Impression * Severe multivessel coronary artery disease. * Resting hemodynamics demonstrated mildly elevated right (mRAP 8 mmHg) and normal left (mPCWP 10 mmHg) heart filling pressures. Mean pulmonary arterial pressure was normal (mPAP 14 mmHg) with normalpulmonary vascular resistance (PVR 0.94 BAUMAN). Cardiac index was moderately reduced by Kwan equation (CI 1.96 L/min/m2) using measured/assumed O2 consumption. Cardiac index was moderately reduced by Thermodilution (CI 2.04 L/min/m2). [3] [1]E-Message; [facility] Jasso Stephanie L 02/09/2024 13:46 EDT [2]Cardiac Cath; MD Pineda Moses 12/29/2023 08:45 EDT [3]Cardiac Cath; MD Pineda Moses 12/29/2023 08:45 EDT Electronic Signature on File CC: Dash Nunez MD [address] [place] [id number] CC: Jona Butler DO [address] [place] [id number] CC: Melissa Lawson MD [address] [place] [address] Electronically Reviewed/Signed by: Prerna Rader PA-C Author Signature Dt/Tm:02/18/2024 02:22 PM Division of Cardiothoracic Surgery [facility] Patient Care team information Care Team Personnel Name: MD Renny, Melissa Arrington Position: Physician - Family Med Member Role: Primary Care Provider Address: [address] [place] [address] [place] Care Team Related Persons Name: SHERRILL VELÁZQUEZ
[2024-02-21] MEDS: SODIUM CHLORIDE 0.9% 500 ML IV ONE ×2 (12:50→13:22)
[2024-02-21 12:51] LABS: Basophils # (auto) 0.02 K/uL (0.00-0.20); Basophils % (auto) 0.3 %; Eosinophils # (auto) 0.11 K/uL (0.00-0.50); Eosinophils % (auto) 1.8 %; Hematocrit (blood only) 31.8 % (42.0-52.0); Hemoglobin 10.5 g/dl (14.0-18.0); Immature Granulocytes # (auto) 0.01 K/uL (0.01-0.20); Immature Granulocytes % (auto) 0.2 %; Lymphocytes # (auto) 1.41 K/uL (1.20-3.40); Lymphocytes % (auto) 22.7 %; Mean Corpuscular Hemoglobin 30.1 pg (25.0-34.0); Mean Corpuscular Volume 91.1 fL (80.0-100.0); Mean Platelet Volume 8.5 fL (9.4-12.4); Monocytes # (auto) 0.45 K/uL (0.11-0.59); Monocytes % (auto) 7.2 %; Neutrophils # (auto) 4.22 K/uL (1.40-6.50); Neutrophils % (auto) 67.8 %; Platelet Count 344 K/uL (130-400); RDW Coefficient of Variation 14.2 % (11.5-14.5); RDW Standard Deviation 46.7 fL (36.4-46.3); Red Blood Count 3.49 M/uL (4.70-6.10); White Blood Count 6.22 K/ul (4.8-10.8)
--- NOTE | 2024-02-21 12:56 | Emergency Department Note ---
History of Present Illness General Chief complaint: Cardiac Assessment Stated complaint: CARDIAC ASSESSMENT DUE TO OPEN HEART SURGERY Time Seen by Provider: 02/21/24 12:31 Source: patient, family ( was at the bedside), RN notes reviewed, old records reviewed (02/16/24-anticoagulation clinic note for follow-up) and other (I did discuss the case with the experimental preflight mechanic on-call Dr. Hagen who sent the patient in) Mode of arrival: ambulatory Limitations: no limitations History of Present Illness This patient 78-year-old male who is approximately 2 weeks status post CABG x 4 valve repair repair and Maze procedure for A-fib, comes in after having a rapid heart rate. He felt poorly yesterday and also again today he checked his heart rate this morning it was high he does not feel like it is beating fast has no chest pain or shortness of breath with septum some dyspnea on exertion at present he says he feels fine his wounds been healing well no fever or chills. he has had some mild swelling his left leg from where he had his graft harvested. Denies fall or trauma no nausea vomiting. No cough. Home Medications Medication Instructions Recorded Confirmed Type levothyroxine 125 mcg tablet 125 mcg PO DAILY 11/23/18 02/21/24 History warfarin 5 mg tablet See Rx Instructions PO UD #160 tabs 10/28/23 02/21/24 Rx aspirin 81 mg tablet 81 mg PO DAILY 02/21/24 02/21/24 History Allergies Allergy/AdvReac Type Severity Reaction Status Date / Time onion Allergy Severe RED ONIONS Verified 03/05/21 10:24 = LIP SWELLS, THROAT TIGHT No Known Drug Allergies Allergy Unknown NKDA Verified 03/05/21 10:24 Past Med/Surg History Problem List (Updated 02/21/24 @ 16:06 by David Hannon MD) D-dimer, elevated (Acute) Current use of ocean transportation intermediary anticoagulation (Acute) Status post aorto-coronary artery bypass graft (Acute) Status post Maze operation for atrial fibrillation (Acute) Atrial flutter with rapid ventricular response (Acute) Afib Malignant neoplasm of urinary bladder HLD (hyperlipidemia) (Chronic) Hypothyroidism (Chronic) H/O knee surgery (Acute) Bradycardia (Acute) Lower extremity pain (Acute) Syncope (Acute 02/25/13) Syncope (Acute 02/25/13) Syncope (Acute) Family History Other Family history non-contributory Social History Smoking Status: Former smoker Hx Alcohol Use: Yes Alcohol type: wine Hx Substance Use: No Preferred Language: [place] Communication Ability: Effective Adjunct Faculty Instructor Required: No Beliefs That Will Affect Care: None Current Living Situation: Spouse Feels Safe at Home: Yes Safety Concerns: Feels Safe At This Time Assistive Devices: Glasses Review of Systems A total of 10 systems reviewed and were otherwise negative Physical Exam Vital Signs Vital Signs - 24 hr 02/21/24 12:23 02/21/24 12:35 02/21/24 12:38 Temperature 36.7 C Temperature Source Temporal Artery Scan Pulse Rate 141 H 143 H Pulse Rate [Right Apical] Pulse Rate from SpO2 Sensor Pulse Rhythm [Right Apical] Respiratory Rate 19 14 Respiratory Effort / Characteristics Non-Labored Spontaneous Respiratory Depth Normal Respiratory Pattern Regular Blood Pressure 116/66 Blood Pressure [Right Arm] Blood Pressure Mean 82 Blood Pressure Mean [Right Arm] Blood Pressure Position [Right Arm] Pulse Oximetry 100 99 99 Oxygen Delivery Method Room Air Room Air Room Air Sepsis Recent Fever Within 48 Hours No Sepsis New/Unexplained Change in Mental Status N/A Sepsis Action Taken by Nursing No Action Required 02/21/24 12:38 02/21/24 12:44 02/21/24 12:45 Temperature Temperature Source Pulse Rate 144 H Pulse Rate [Right Apical] 143 H 132 H Pulse Rate from SpO2 Sensor Pulse Rhythm [Right Apical] Respiratory Rate 14 13 16 Respiratory Effort / Characteristics Non-Labored Spontaneous Non-Labored Spontaneous Respiratory Depth Normal Normal Respiratory Pattern Regular Regular Blood Pressure Blood Pressure [Right Arm] 108/82 90/66 L Blood Pressure Mean Blood Pressure Mean [Right Arm] 90 74 Blood Pressure Position [Right Arm] Semi-fowlers Pulse Oximetry 100 100 97 Oxygen Delivery Method Room Air Room Air Room Air Sepsis Recent Fever Within 48 Hours Sepsis New/Unexplained Change in Mental Status Sepsis Action Taken by Nursing 02/21/24 13:00 02/21/24 13:04 02/21/24 13:10 Temperature Temperature Source Pulse Rate 140 H Pulse Rate [Right Apical] 142 H Pulse Rate from SpO2 Sensor Pulse Rhythm [Right Apical] Respiratory Rate 13 Respiratory Effort / Characteristics Non-Labored Spontaneous Respiratory Depth Normal Respiratory Pattern Regular Blood Pressure 113/81 87/71 L Blood Pressure [Right Arm] 113/81 Blood Pressure Mean 81 Blood Pressure Mean [Right Arm] 91 Blood Pressure Position [Right Arm] Pulse Oximetry 99 Oxygen Delivery Method Room Air Sepsis Recent Fever Within 48 Hours Sepsis New/Unexplained Change in Mental Status Sepsis Action Taken by Nursing 02/21/24 13:11 02/21/24 13:15 02/21/24 13:15 Temperature Temperature Source Pulse Rate 92 H Pulse Rate [Right Apical] 123 H 104 H Pulse Rate from SpO2 Sensor Pulse Rhythm [Right Apical] Irregular Respiratory Rate 18 18 Respiratory Effort / Characteristics Non-Labored Spontaneous Non-Labored Spontaneous Respiratory Depth Normal Normal Respiratory Pattern Regular Regular Blood Pressure Blood Pressure [Right Arm] 87/71 L 87/60 L Blood Pressure Mean Blood Pressure Mean [Right Arm] 76 69 Blood Pressure Position [Right Arm] Pulse Oximetry 98 99 Oxygen Delivery Method Room Air Room Air Sepsis Recent Fever Within 48 Hours Sepsis New/Unexplained Change in Mental Status Sepsis Action Taken by Nursing 02/21/24 13:15 02/21/24 13:15 02/21/24 13:20 Temperature Temperature Source Pulse Rate 120 H Pulse Rate [Right Apical] Pulse Rate from SpO2 Sensor 118 H Pulse Rhythm [Right Apical] Respiratory Rate 15 Respiratory Effort / Characteristics Respiratory Depth Respiratory Pattern Blood Pressure 87/60 L 92/70 L Blood Pressure [Right Arm] Blood Pressure Mean 78 76 Blood Pressure Mean [Right Arm] Blood Pressure Position [Right Arm] Pulse Oximetry 97 Oxygen Delivery Method Sepsis Recent Fever Within 48 Hours Sepsis New/Unexplained Change in Mental Status Sepsis Action Taken by Nursing 02/21/24 13:25 02/21/24 13:30 02/21/24 13:30 Temperature Temperature Source Pulse Rate 140 H Pulse Rate [Right Apical] 139 H Pulse Rate from SpO2 Sensor 139 H Pulse Rhythm [Right Apical] Respiratory Rate 16 16 Respiratory Effort / Characteristics Non-Labored Spontaneous Respiratory Depth Normal Respiratory Pattern Regular Blood Pressure 113/82 93/77 L Blood Pressure [Right Arm] 93/77 L Blood Pressure Mean 97 82 Blood Pressure Mean [Right Arm] 82 Blood Pressure Position [Right Arm] Semi-fowlers Pulse Oximetry 99 99 Oxygen Delivery Method Room Air Sepsis Recent Fever Within 48 Hours Sepsis New/Unexplained Change in Mental Status Sepsis Action Taken by Nursing 02/21/24 13:32 02/21/24 13:35 Temperature Temperature Source Pulse Rate 97 H 102 H Pulse Rate [Right Apical] Pulse Rate from SpO2 Sensor 119 H Pulse Rhythm [Right Apical] Respiratory Rate 20 Respiratory Effort / Characteristics Respiratory Depth Respiratory Pattern Blood Pressure 93/77 L 100/71 Blood Pressure [Right Arm] Blood Pressure Mean 73 Blood Pressure Mean [Right Arm] Blood Pressure Position [Right Arm] Pulse Oximetry 100 Oxygen Delivery Method Sepsis Recent Fever Within 48 Hours Sepsis New/Unexplained Change in Mental Status Sepsis Action Taken by Nursing General: Well developed well nourished [id number] older male who appears not ill and in no acute distress, breathing comfortably on room air. Normal speech HEENT: Normal cephalic atraumatic. Pupils are equal round and reactive to light. Extraocular movements are intact. Oropharynx is pink with moist mucous membranes. No swelling of the mouth lips or tongue. Neck: Supple with a midline trachea. No meningeal signs or stiffness, no JVD or bruits. No Stridor. Chest: Clear to auscultation bilaterally. No wheezes or rhonchi. No increased work of breathing. Well-healing incisions from recent CABG Heart: Complex tachycardia in the 140s appears to be a flutter. Abdomen: Soft nontender, nondistended without rebound guarding or rigidity. Extremities: No cyanosis clubbing . Well-healing incision from graft harvest on the left. No redness or warmth Spine/Back. Non tender to palpation. No CVA tenderness Skin: Good turgor without rashes. Neurologic exam: Cranial nerves two through 12 are intact. Motor and sensation are intact and symmetrical throughout. Course Administered Medications Discontinued Medications Sodium Chloride (Nss) 500 mls @ 999 mls/hr IV .Q31M ONE Stop: 02/21/24 13:18 Last Infusion: 02/21/24 13:22 Dose: Infused Documented By: Admin: 02/21/24 12:50 Dose: 999 mls/hr Documented By: RACHEL Sodium Chloride (Nss) 500 mls @ 999 mls/hr IV .Q31M ONE Stop: 02/21/24 13:50 Last Infusion: 02/21/24 14:08 Dose: Infused Documented By: Admin: 02/21/24 13:22 Dose: 999 mls/hr Documented By: RACHEL Metoprolol Tartrate (Metoprolol Tartrate 1 Mg/Ml Vial) 5 mg IV NOW STA Stop: 02/21/24 12:44 Last Admin: 02/21/24 13:04 Dose: 5 mg Documented By: RACHEL Metoprolol Tartrate (Metoprolol Tartrate 25 Mg Tab) 12.5 mg PO ONE STA Stop: 02/21/24 14:30 Last Admin: 02/21/24 15:51 Dose: 12.5 mg Documented By: MIGUEL Potassium Chloride (Potassium Chloride 10 Meq Tabcr) 10 meq PO NOW STA Stop: 02/21/24 14:40 Last Admin: 02/21/24 15:51 Dose: 10 meq Documented By: EP Critical Care Time Critical Care Time: Yes Total Critical Care Time: 30 Due to the patient's tachycardia and need for frequent reassessment and medications and fluids given with concern for low blood pressure and discussion with experimental preflight mechanic in the hospital as well as the family, I have personally spent greater than 30 minutes of critical care time in the direct management of this patient. This includes bedside care, interpretation of diagnostic studies, and testing, discussion with consultants, patient, and family members, and other required patient management activities. This 30 minutes is in excess of all separately billable procedures. Medical Decision Making Differential Diagnosis A-fib, a flutter, electrolyte or metabolic abnormality, acute coronary syndrome, arrhythmia, PE, infection, anemia Medical Records Attestation: I reviewed the patient's medical records. Home Medications Current Medication List: was personally reviewed by me Laboratory Data Attestation: I reviewed the patient's lab results. 02/21/24 12:33 02/21/24 12:33 Lab Results 02/21/24 Range/Units 12:33 WBC 6.22 (4.8-10.8) K/ul RBC 3.49 L (4.70-6.10) M/uL Hgb 10.5 L (14.0-18.0) g/dl Hct 31.8 L (42.0-52.0) % MCV 91.1 (80.0-100.0) fL MCH 30.1 (25.0-34.0) pg MCHC 33.0 (32.0-36.0) g/dL RDW Std Deviation 46.7 H (36.4-46.3) fL RDW Coeff of Tereza 14.2 (11.5-14.5) % Plt Count 344 (130-400) K/uL MPV 8.5 L (9.4-12.4) fL Immature Gran % (Auto) 0.2 % Neut % (Auto) 67.8 % Lymph % (Auto) 22.7 % [place] % (Auto) 7.2 % Eos % (Auto) 1.8 % Baso % (Auto) 0.3 % Neut # (Auto) 4.22 (1.40-6.50) K/uL Lymph # (Auto) 1.41 (1.20-3.40) K/uL [place] # (Auto) 0.45 (0.11-0.59) K/uL Eos # (Auto) 0.11 (0.00-0.50) K/uL Baso # (Auto) 0.02 (0.00-0.20) K/uL Immature Gran # (Auto) 0.01 (0.01-0.20) K/uL PT 15.6 H (9.0-12.0) Seconds INR 1.5 H (0.9-1.1) APTT 29 (21-31) Seconds PTT Ratio 1.1 D-Dimer 8640 H* (0-500) ug/L FEU Sodium 136 (136-145) mmol/L Potassium 3.9 (3.5-5.1) mmol/L Chloride 101 (98-107) mmol/L Carbon Dioxide 26 (21-32) mmol/L Anion Gap 9 (3-11) BUN 15 (6-23) mg/dl Creatinine 0.94 (0.6-1.4) mg/dl Est Cr Clr Drug Dosing 76.4 ml/min eGFR 84.01 BUN/Creatinine Ratio 16.0 (10-20) Glucose 153 H (70-99(Fasting)) mg/dl Calcium 8.8 (8.6-10.3) mg/dl Magnesium 2.1 (1.7-2.4) mg/dl Total Bilirubin 0.9 (0.2-1.0) mg/dl AST 18 (13-39) U/L ALT 15 (7-52) U/L Alkaline Phosphatase 91 (34-104) U/L Troponin I High Sens 45.2 H (0-20) pg/ml Total Protein 6.6 (6.0-8.3) gm/dl Albumin 3.7 (3.4-5.0) gm/dl Globulin 2.9 (2.5-4.0) gm/dl Albumin/Globulin Ratio 1.3 (0.9-2) Lipase 26 (11-82) U/L TSH 7.089 H (0.300-4.500) uIu/ml Free T4 1.00 (0.61-1.60) ng/dl Imaging Data Attestation: I personally reviewed and interpreted this imaging study as follows: My Impression: Chest x-raycardiomegaly but no acute infiltrate, failure, pneumothorax seen Radiologist's Impression: Chest X-Ray 02/21/24 12:39 XR chest 1V portable HISTORY: 78 years-old Male Chest pain, nonspecific COMPARISON: 11/26/2023 TECHNIQUE: AP view the chest FINDINGS: Cardiac silhouette is enlarged. Median sternotomy. Left atrial exclusion device. Only vascular congestion. No pneumothorax. Trace pleural effusions with mild bibasilar opacities. Calcified granuloma the left lung base. Intact. IMPRESSION: 1. Cardiomegaly with pulmonary vascular congestion. 2. Trace pleural effusions with mild bibasilar atelectasis. ACT 112: Negative or not required by law. The above report was generated using voice recognition software. It may contain grammatical, syntax or spelling errors. Electronically signed by: Venancio Eden M.D. 02/21/2024 1:18 PM ECG Data Attestation: I personally reviewed and interpreted this ECG as follows: Indication: + palpitations Rate (beats per minute): 140 Rhythm: + atrial flutter ECG Intervals/blocks: + Normal QRS, + Normal QT and + Normal DC ECG [place]: + Normal ECG ST segments: + Normal ST segments ECG Findings: no PACs or no PVCs Comparison ECG Date: from (11/23/18) Additional Comments: EKG #2: A flutter with variable block rate of 131 no ischemic changes nonspecific T wave abnormality MDM Narrative This patient comes in as described above. He was placed on a manager monitoring and room A9. The nurse had to me his EKG looks like is in a flutter he looks stable otherwise when I walk in the room he has no complaints his initial blood pressure was 110 although it seemed to drop down to 90 before so I gave him some IV fluids before given any meds. I did discuss case with Dr. Hagen who is the experimental preflight mechanic on-call and she talk to him prior to arrival she recommended to fluids and the Lopressor. His blood pressure came up in the 110s and was given 5 mg Lopressor slowly. His blood pressure was in the 90s but came up with a little more fluids. His rate came down significantly and was averaging in the 110s. I do think he needs to be admitted/observed initial troponin is mildly elevated h. I did discuss case in consultation with Dr. Conde he is seen the patient ER is going to admit the patient for further treatment and evaluation. After the patient left the ER the D-dimer did come back significant elevaated. I did discuss case with Dr. Conde well I do not think PE is the likely diagnosis he did put in for a chest CT. The patient was admitted/observed. Continuous cardiac monitoring: Orders placed in EMR for continuous manager monitoring: Upon my evaluation the patient was noted to be in rapid A-fib/flutter at 140 Impression & Plan Atrial flutter with rapid ventricular response, Status post Maze operation for atrial fibrillation, Status post aorto-coronary artery bypass graft, Current use of ocean transportation intermediary anticoagulation, D-dimer, elevated Discharge Plan Visit Data Chief Complaint: Cardiac Assessment Stated Complaint: CARDIAC ASSESSMENT DUE TO OPEN HEART SURGERY ED Provider: David Hannon Discharge Problem: Atrial flutter with rapid ventricular response, Status post Maze operation for atrial fibrillation, Status post aorto-coronary artery bypass graft, Current use of fpc anticoagulation, D-dimer, elevated Patient Disposition: Admitted As Inpatient Discharge Instructions Interventions: ED Discharge Assessment Last Done: 02/21/24 14:44
[2024-02-21] MEDS: METOPROLOL TARTRATE 1 MG/ML VIAL IV STA (13:04)
[2024-02-21 13:14] LABS: Albumin Globulin Ratio 1.3 (0.9-2); Albumin Level 3.7 gm/dl (3.4-5.0); Bilirubin,Total 0.9 mg/dl (0.2-1.0); Calcium 8.8 mg/dl (8.6-10.3); Creatinine Clr Calc Pharmacy 76.4 ml/min; Globulin 2.9 gm/dl (2.5-4.0); Magnesium 2.1 mg/dl (1.7-2.4); Potassium 3.9 mmol/L (3.5-5.1); Total Protein 6.6 gm/dl (6.0-8.3)
--- NOTE | 2024-02-21 13:19 | XRay Report ---
XR chest 1V portable HISTORY: 78 years-old Male Chest pain, nonspecific COMPARISON: 11/26/2023 TECHNIQUE: AP view the chest FINDINGS: Cardiac silhouette is enlarged. Median sternotomy. Left atrial exclusion device. Only vascular conges tion. No pneumothorax. Trace pleural effusions with mild bibasilar opacities. Calcified granuloma the left lung base. Intact. IMPRESSION: 1. Cardiomegaly with pulmonary vascular congestion. 2. Trace pleural effusions with mild bibasilar atelectasis. ACT 112: Negative or not required by law. The above report was generated using voice recognition software. It may contain grammatical, syntax o r spelling errors. Electronically signed by: Venancio Eden M.D. 02/21/2024 1:18 PM
[2024-02-21 13:20] LABS: Troponin I High Sensitivity 45.2 pg/ml (0-20)
[2024-02-21 13:27] LABS: INR 1.5 (0.9-1.1); Partial Thromboplastin Ratio 1.1; Partial Thromboplastin Time 29 Seconds (21-31); Prothrombin Time 15.6 Seconds (9.0-12.0)
[2024-02-21 13:32] LABS: Thyroid Stimulating Hormone 7.089 uIu/ml (0.300-4.500)
--- NOTE | 2024-02-21 13:34 | History & Physical Report ---
Date of Service February 21, 2024 Assessment & Plan (1) Atrial flutter with rapid ventricular response: Plan: TSH mildly elevated. No alcohol use. Recent CABG and MAZE procedure Converted to rate controlled atrial fibrillation following metoprolol 5mg IV and IV fluids given in the ER Start metoprolol tartrate 12.5mg PO BID, lower dose due to borderline BP Continue warfarin for anticoagulation Monitor on telemetry do recurrence Consult cardiology for ongoing management (2) Status post Maze operation for atrial fibrillation: (3) Status post aorto-coronary artery bypass graft: Plan: Continue aspirin Not on statin due to prior intolerance Plan VTE Prophylaxis - warfarin Diet - heart healthy Disposition - admit to PCU Admission and Anticipated Discharge Date Admission Date: February 21, 2024 History of Present Illness Chief Complaint: Tachycardia Primary Care Provider: Melissa Lawson MD Andres Valentine is a 78 year old male who presents to the ER with tachycardia. He reports having a coronary artery bypass with MAZE procedure and valve replacement performed at [facility]. He had been doing well followin g his surgery. He notes his warfarin was interrupted for his surgery. Since yesterday he has felt poorly, did not sleep well last night and felt like he over did PT yesterday. Fron the afternoon he appeared more on the pale side and had a loss of appetite. By 9am this morning he felt a little better and color improved but his bloos pressure remained low and pulse was high on his BP cuff therefore decided to come to the ER. He is not on metoprolol as blood pressure has been on the low side sionce his operation even off his prior valsartan. He is not on a statin due to side effects with joint aches many years ago. He restarted warfarin on February 15. Allergies Allergy/AdvReac Type Severity Reaction Status Date / Time onion Allergy Severe RED ONIONS Verified 03/05/21 10:24 = LIP SWELLS, THROAT TIGHT No Known Drug Allergies Allergy Unknown NKDA Verified 03/05/21 10:24 Hot Dog Allergy Hives Uncoded 02/21/24 17:49 Home Medications Medication Instructions Recorded Confirmed Type levothyroxine 125 mcg tablet 125 mcg PO DAILY 11/23/18 02/21/24 History warfarin 5 mg tablet See Rx Instructions PO UD #160 tabs 10/28/23 02/21/24 Rx aspirin 81 mg tablet 81 mg PO DAILY 02/21/24 02/21/24 History Past Med/Surg History Problem List (Updated 02/21/24 @ 16:06 by David Hannon MD) D-dimer, elevated (Acute) 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 (Acute) Status post aorto-coronary artery bypass graft (Acute) Status post Maze operation for atrial fibrillation (Acute) Atrial flutter with rapid ventricular response (Acute) Afib Malignant neoplasm of urinary bladder HLD (hyperlipidemia) (Chronic) Hypothyroidism (Chronic) H/O knee surgery (Acute) Bradycardia (Acute) Lower extremity pain (Acute) Syncope (Acute 02/25/13) Syncope (Acute 02/25/13) Syncope (Acute) Family History Other Family history non-contributory Social History Smoking Status: Former smoker Hx Alcohol Use: Yes Alcohol type: wine Hx Substance Use: No Preferred Language: Slovak Communication Ability: Effective Chief Operator Required: No Beliefs That Will Affect Care: None Current Living Situation: Spouse Feels Safe at Home: Yes Safety Concerns: Feels Safe At This Time Assistive Devices: Glasses Review of Systems Review of Systems: All systems reviewed & are unremarkable except as noted in HPI & below Physical Exam Constitutional: WD/WN, vitals as above Eyes: PERRL, conjunctivae normal, anicteric sclerae ENMT: external ear and nose normal, oropharynx normal Mouth: oral mucous membranes not dry Respiratory: normal respiratory effort, lungs clear to auscultation Cardiovascular: Rate/Rhythm: + tachycardic and + irregularly irregular Heart Sounds: no murmur Extremities: normal capillary refill and + pedal edema (Left > Right); no calf tenderness Gastrointestinal (Abdomen): normal bowel sounds, soft, nontender, no hepatosplenomegaly Musculoskeletal: no cyanosis or clubbing, extremities motor strength 5/5 Skin: no rashes, warm and dry Neurologic: moves all extremities and awake; not confused Psychiatric: A+Ox3, euthymic affect Results & Data Results & Data Vital Signs (Past 12 Hours) Vital Signs Temp Pulse Pulse Resp BP BP Pulse Ox 02/21/24 13:32 97 H 93/77 L 02/21/24 13:30 139 H 16 93/77 L 99 02/21/24 13:25 113/82 02/21/24 13:20 92/70 L 02/21/24 13:15 87/60 L 02/21/24 13:15 120 H 15 97 02/21/24 13:15 92 H 02/21/24 13:15 104 H 18 87/60 L 99 02/21/24 13:11 123 H 18 87/71 L 98 02/21/24 13:10 87/71 L 02/21/24 13:04 140 H 113/81 02/21/24 13:00 142 H 13 113/81 99 02/21/24 12:45 132 H 16 90/66 L 97 02/21/24 12:44 144 H 13 100 02/21/24 12:38 143 H 14 108/82 100 02/21/24 12:38 99 02/21/24 12:35 143 H 14 99 02/21/24 12:23 36.7 C 141 H 19 116/66 100 O2 Del Method 02/21/24 13:32 02/21/24 13:30 Room Air 02/21/24 13:25 02/21/24 13:20 02/21/24 13:15 02/21/24 13:15 02/21/24 13:15 02/21/24 13:15 Room Air 02/21/24 13:11 Room Air 02/21/24 13:10 02/21/24 13:04 02/21/24 13:00 Room Air 02/21/24 12:45 Room Air 02/21/24 12:44 Room Air 02/21/24 12:38 Room Air 02/21/24 12:38 Room Air 02/21/24 12:35 Room Air 02/21/24 12:23 Room Air Laboratory Results Abnormal lab results 02/21/24 Range/Units 12:33 RBC 3.49 L (4.70-6.10) M/uL Hgb 10.5 L (14.0-18.0) g/dl Hct 31.8 L (42.0-52.0) % RDW Std Deviation 46.7 H (36.4-46.3) fL MPV 8.5 L (9.4-12.4) fL PT 15.6 H (9.0-12.0) Seconds INR 1.5 H (0.9-1.1) D-Dimer 8640 H* (0-500) ug/L FEU Glucose 153 H (70-99(Fasting)) mg/dl Troponin I High Sens 45.2 H (0-20) pg/ml TSH 7.089 H (0.300-4.500) uIu/ml Diagnostic Findings XR chest 1V portable HISTORY: 78 years-old Male Chest pain, nonspecific COMPARISON: 11/26/2023 TECHNIQUE: AP view the chest FINDINGS: Cardiac silhouette is enlarged. Median sternotomy. Left atrial exclusion device. Only vascular congestion. No pneumothorax. Trace pleural effusions with mild bibasilar opacities. Calcified granuloma the left lung base. Intact. IMPRESSION: 1. Cardiomegaly with pulmonary vascular congestion. 2. Trace pleural effusions with mild bibasilar atelectasis. Medications Administered ER Medications Given: Metoprolol 5mg IV Normal saline 500ml bolus x2 ECG Rate (beats per minute): 140 Rhythm: atrial flutter Findings: no acute ischemic change Comparison ECG Date: from (November 23, 2018) Change: the following changes noted (Atrial flutter 2:1 block replaced NSR) Code Status & VTE Plan Code Status Full VTE Prophylaxis Plan VTE Prophylaxis will be ordered: Yes PG Care Time/CCT Total # of Minutes Spent Total Time Spent with Patient: Total time spent is greater than 50% in coordination of care (as documented) at patient's floor/unit and/or counseling patient: Coding Level of Care Code 15962 INT INP/OBS CARE 2/55MIN Diagnoses Atrial flutter with rapid ventricular response I48.92 Status post Maze operation for atrial fibrillation Z98.890; Z86.79 Status post aorto-coronary artery bypass graft Z95.1
[2024-02-21] MEDS ORDERED: POLYETHYLENE (MIRALAX) 17 GM PACK PO PRN (14:20)
[2024-02-21 14:44] LABS: D Dimer 8640 ug/L FEU (0-500)
[2024-02-21] MEDS ORDERED: ACETAMINOPHEN 325 MG TAB PO PRN (15:09)
--- NOTE | 2024-02-21 15:46 | Cardiology Consultation ---
Date of Consultation February 21, 2024 Assessment & Plan (1) Atrial flutter with rapid ventricular response: (2) Hypotension: (3) Status post aorto-coronary artery bypass graft: (4) H/O aortic valve replacement: (5) Status post Maze operation for atrial fibrillation: Plan Plan is to try to get him back into normal sinus rhythm. His blood pressure is running relatively low I am going to add amiodarone. We have had difficulty in the last week getting his INR therapeutic. He has been taking 15 and 10 mg doses of Coumadin and his INR from the emergency room today was still 1.5. He is due to get another 50 mg of Coumadin tonight. The amiodarone may aid us in getting his INR therapeutic. Because he is asymptomatic with his A-fib I would opt to load him with amiodarone for the next several weeks and if he remains in A-fib then bring him back to do cardioversion on him once his INR remains therapeutic. If he becomes symptomatic we could always do a ROXANA to make sure he does not have a left atrial thrombus and then cardiovert however I suspect that the amiodarone may be better for him and helping to maintain normal sinus rhythm since he has a long history of A-fib. If his heart rate remains controlled by tomorrow he may be able to be discharged to home. I also ordered a limited echo to reassess his LV function post surgery. Thank you for allowing me to participate in his care. I look forward to participating in his care with you. History of Present Illness Reason for Consultation: A-fib with RVR and low blood pressure Attending Physician: Dash Conde MD History of Present Illness Mr. Valentine is a 78-year-old gentleman who is about 2 weeks out from his CABG with an aortic valve replacement as well as a maze procedure. As far as I understand, he was discharged from [facility] in normal sinus rhythm. I was called this morning with concerns that his blood pressure was running low and his heart rate was fast. He was advised to come to the hospital however due to transportation issues related to the [employer] football game he chose to wait until the game started at noon to come in. When he arrived in the ER he was noted to have low blood pressure he was given some IV fluids as well as a low- dose of IV metoprolol to slow his heart rate down. He tolerated the first dose well and was given a second dose. Unfortunately he remains in atrial fibrillation at this time. His INR is subtherapeutic due to being off of his Coumadin for his surgery. He is asymptomatic from an A-fib standpoint in fact he is unaware that he is even in it. His EKG shows A-fib there are nonspecific T wave changes. Allergies Allergy/AdvReac Type Severity Reaction Status Date / Time onion Allergy Severe RED ONIONS Verified 03/05/21 10:24 = LIP SWELLS, THROAT TIGHT No Known Drug Allergies Allergy Unknown NKDA Verified 03/05/21 10:24 Hot Dog Allergy Hives Uncoded 02/21/24 17:49 Home Medications Medication Instructions Recorded Confirmed Type levothyroxine 125 mcg tablet 125 mcg PO DAILY 11/23/18 02/21/24 History warfarin 5 mg tablet See Rx Instructions PO UD #160 tabs 10/28/23 02/21/24 Rx aspirin 81 mg tablet 81 mg PO DAILY 02/21/24 02/21/24 History Patient History Family History Other Family history non-contributory Social History Smoking Status: Former smoker Hx Alcohol Use: Yes Alcohol type: wine Hx Substance Use: No Preferred Language: Northern Irish Communication Ability: Effective Can Maker Required: No Beliefs That Will Affect Care: None Current Living Situation: Spouse Feels Safe at Home: Yes Safety Concerns: Feels Safe At This Time Assistive Devices: Glasses Review of Systems Review of Systems: All systems reviewed & are unremarkable except as noted in HPI & below Physical Exam Physical Exam: Awake alert oriented in no apparent distress Respiratory: Lungs show decreased breath sounds on the left otherwise clear Cardiovascular: Valve sounds appear crisp no AI is appreciated There is no edema Results & Data Vital Signs (Past 12 Hours) Vital Signs Temp Pulse Pulse Resp BP BP BP 02/21/24 15:19 37 C 130 H 16 97/72 L 02/21/24 14:05 107/82 02/21/24 14:00 139 H 22 98/78 L 02/21/24 13:50 137 H 16 94/75 L 02/21/24 13:46 139 H 19 115/73 02/21/24 13:40 112/85 02/21/24 13:35 102 H 20 100/71 02/21/24 13:32 97 H 93/77 L 02/21/24 13:30 140 H 16 93/77 L 02/21/24 13:30 139 H 16 93/77 L 02/21/24 13:25 113/82 02/21/24 13:20 92/70 L 02/21/24 13:15 87/60 L 02/21/24 13:15 120 H 15 02/21/24 13:15 92 H 02/21/24 13:15 104 H 18 87/60 L 02/21/24 13:11 123 H 18 87/71 L 02/21/24 13:10 87/71 L 02/21/24 13:04 140 H 113/81 02/21/24 13:00 142 H 13 113/81 02/21/24 12:45 132 H 16 90/66 L 02/21/24 12:44 144 H 13 02/21/24 12:38 143 H 14 108/82 02/21/24 12:38 02/21/24 12:35 143 H 14 02/21/24 12:23 36.7 C 141 H 19 116/66 Pulse Ox O2 Del Method 02/21/24 15:19 97 Room Air 02/21/24 14:05 02/21/24 14:00 99 02/21/24 13:50 98 02/21/24 13:46 99 02/21/24 13:40 02/21/24 13:35 100 02/21/24 13:32 02/21/24 13:30 99 02/21/24 13:30 99 Room Air 02/21/24 13:25 02/21/24 13:20 02/21/24 13:15 02/21/24 13:15 97 02/21/24 13:15 02/21/24 13:15 99 Room Air 02/21/24 13:11 98 Room Air 02/21/24 13:10 02/21/24 13:04 02/21/24 13:00 99 Room Air 02/21/24 12:45 97 Room Air 02/21/24 12:44 100 Room Air 02/21/24 12:38 100 Room Air 02/21/24 12:38 99 Room Air 02/21/24 12:35 99 Room Air 02/21/24 12:23 100 Room Air Laboratory Results Abnormal lab results 02/21/24 02/21/24 Range/Units 12:33 14:20 RBC 3.49 L (4.70-6.10) M/uL Hgb 10.5 L (14.0-18.0) g/dl Hct 31.8 L (42.0-52.0) % RDW Std Deviation 46.7 H (36.4-46.3) fL MPV 8.5 L (9.4-12.4) fL PT 15.6 H (9.0-12.0) Seconds INR 1.5 H (0.9-1.1) D-Dimer 8640 H* (0-500) ug/L FEU Glucose 153 H (70-99(Fasting)) mg/dl Troponin I High Sens 45.2 H 43.7 H (0-20) pg/ml TSH 7.089 H (0.300-4.500) uIu/ml ECG Additional Comments: A-fib with nonspecific ST-T wave changes
[2024-02-21] MEDS: POTASSIUM CHLORIDE 10 MEQ TABCR PO STA (15:51)
[2024-02-21] MEDS: METOPROLOL TARTRATE 25 MG TAB PO STA (15:51)
[2024-02-21] MEDS: OPTIRAY 320 125ml IV ONE (16:16)
--- NOTE | 2024-02-21 17:10 | CT Scan Report ---
EXAM: CT Angiography Chest With Intravenous Contrast INDICATION: Pulmonary embolus. TECHNIQUE: Axial computed tomographic angiography images of the chest with intravenous contrast. Sagittal and coronal reformatted images were created and reviewed. This CT exam was performed using one or more of the following dose reduction techniques: automated exposure control, adjustment of the mA and/or kV according to patient size, and/or use of iterative reconstruction technique. MIP reconstructed images were created and reviewed. CONTRAST: 118ml of Optiray 320 was administered intravenously. COMPARISON: No relevant prior studies available. FINDINGS: Pulmonary arteries: No abnormality noted. No pulmonary embolism. Aorta: Atherosclerotic calcification of the aorta and branches. No aneurysm. There is scattered atherosclerosis of the ectatic aorta. No dissection. Lungs and pleural spaces: There is a small layering left pleural effusion. Maximal thickness at the base is 3.9 cm. Very small layering right pleural effusion. Heart: Cardiomegaly and small pericardial effusion mostly at the base. There is been aortic valve replacement. No evidence of right heart strain. Atrial appendage clip noted. There is mild fluid in the retrosternal space contiguous with the pericardial effusion. There is no organized or drainable collection. Bones/joints: Adequate appearance of sternotomy. Soft tissues: No abnormality noted. Lymph nodes: There is a enlarged mildly calcified right hilar lymph node measuring 1.5 cm short axis dimension. There is an enlarged aorta pulmonic node measuring 1.3 cm. Multiple reactive nodes present in the other mediastinal compartments. IMPRESSION: 1. No pulmonary embolus identified. 2. Small left and trace right pleural effusions without pneumothorax. 3. Cardiomegaly with small pericardial effusion contiguous with a small amount of postoperative retrosternal fluid. No abscess or drainable collection. 4. Mildly enlarged lymph node in the aorta pulmonic and right hilar compartments likely reactive. ACT 112: Positive. There are findings on this exam that require communication between the performing entity and the patient following Patient Test Result Information Act ([place] ACT 112) guidelines. Electronically signed by Luz Castrejon 02-21-2024 5:10 PM
[2024-02-21] MEDS: AMIODARONE 200 MG TAB PO STA (18:00)
--- NOTE | 2024-02-21 19:43 | Electrocardiogram Report ---
Test Reason : Blood Pressure : */* mmHG Vent. Rate : 140 BPM Atrial Rate : 280 BPM P-R Int : * ms QRS Dur : 94 ms QT Int : 278 ms P-R-T Axes : 96 63 -29 degrees QTcB Int : 424 ms Atrial flutter with 2:1 A-V conduction Nonspecific T wave abnormality Rightward axis Abnormal ECG When compared with ECG of 23-Nov-2018 16:59, Atrial flutter has replaced Sinus rhythm Vent. rate has increased by 86 bpm T wave inversion now evident in Inferior leads Nonspecific T wave abnormality now evident in Anterolateral leads Confirmed by Prerna Gan (Jacobo) on 02/21/2024 7:43:17 PM Referred By: REFERRED SELF Confirmed By: Prerna Gan
[2024-02-21] MEDS ORDERED: WARFARIN SOD 7.5 MG TAB PO ONE (21:00)
[2024-02-21] MEDS: WARFARIN SOD 10 MG TAB PO SCH (22:32)
[2024-02-21] MEDS: AMIODARONE 200 MG TAB PO SCH (22:32)
[2024-02-22] MEDS: LEVOTHYROXINE SODIUM 125 MCG TABLET PO SCH (06:00)
[2024-02-22 06:24] LABS: Basophils # (auto) 0.03 K/uL (0.00-0.20); Basophils % (auto) 0.5 %; Eosinophils # (auto) 0.16 K/uL (0.00-0.50); Eosinophils % (auto) 2.8 %; Hematocrit (blood only) 26.4 % (42.0-52.0); Hemoglobin 8.9 g/dl (14.0-18.0); Immature Granulocytes # (auto) 0.01 K/uL (0.01-0.20); Immature Granulocytes % (auto) 0.2 %; Lymphocytes # (auto) 1.26 K/uL (1.20-3.40); Lymphocytes % (auto) 21.8 %; Mean Corpuscular Hemoglobin 30.5 pg (25.0-34.0); Mean Corpuscular Hgb Conc 33.7 g/dL (32.0-36.0); Mean Corpuscular Volume 90.4 fL (80.0-100.0); Mean Platelet Volume 8.9 fL (9.4-12.4); Monocytes # (auto) 0.66 K/uL (0.11-0.59); Monocytes % (auto) 11.4 %; Neutrophils # (auto) 3.66 K/uL (1.40-6.50); Neutrophils % (auto) 63.3 %; Platelet Count 301 K/uL (130-400); RDW Coefficient of Variation 14.1 % (11.5-14.5); RDW Standard Deviation 46.5 fL (36.4-46.3); Red Blood Count 2.92 M/uL (4.70-6.10); White Blood Count 5.78 K/ul (4.8-10.8)
[2024-02-22 06:44] LABS: Calcium 8.1 mg/dl (8.6-10.3); Creatinine Clr Calc Pharmacy 76.7 ml/min; Potassium 3.9 mmol/L (3.5-5.1)
[2024-02-22 07:56] LABS: INR 1.6 (0.9-1.1)
[2024-02-22] MEDS ORDERED: 0.2 MICRON FILTER SET 1 EACH IV ONE ×3 (09:44→12:18)
[2024-02-22] MEDS: AMIODARONE / D5W 150 MG/100 ML BAG IV ONE (11:10)
[2024-02-22] MEDS: ASPIRIN 81 MG ECTAB PO SCH (11:17)
[2024-02-22] MEDS: AMIODARONE / D5W 360 MG/200 ML BAG IV ONE (11:51)
[2024-02-22] MEDS: AMIODARONE / D5W 360 MG/200 ML BAG IV SCH (11:51)
[2024-02-22] MEDS: DIGOXIN 125 MCG in SYRINGE 9.5 ML IV STA (12:00)
[2024-02-22] MEDS ORDERED: AMIODARONE / D5W 360 MG/200 ML BAG IV ONE (12:30)
--- NOTE | 2024-02-22 12:50 | Cardiology Progress Note ---
Date of Service February 22, 2024 Assessment & Plan (1) Atrial flutter with rapid ventricular response: (2) Hypotension: (3) Status post aorto-coronary artery bypass graft: (4) H/O aortic valve replacement: (5) Status post Maze operation for atrial fibrillation: (6) Acute blood loss anemia: Plan: This postop. Will follow his blood count would encourage him to take a multivitamin and iron at least for the next month Plan Plan is to try to get him back into normal sinus rhythm. His blood pressure is running relatively low I am going to add amiodarone. We have had difficulty in the last week getting his INR therapeutic. He has been taking 15 and 10 mg doses of Coumadin and his INR from the emergency room today was still 1.5. He is due to get another 50 mg of Coumadin tonight. The amiodarone may aid us in getting his INR therapeutic. Because he is asymptomatic with his A-fib I would opt to load him with amiodarone for the next several weeks and if he remains in A-fib then bring him back to do cardioversion on him once his INR remains therapeutic. If he becomes symptomatic we could always do a ROXANA to make sure he does not have a left atrial thrombus and then cardiovert however I suspect that the amiodarone may be better for him and helping to maintain normal sinus rhythm since he has a long history of A-fib. If his heart rate remains controlled by tomorrow he may be able to be discharged to home. Thank you for allowing me to participate in his care. I look forward to participating in his care with you. Admission and Anticipated Discharge Date Admission Date: February 21, 2024 Subjective Mr. Valentine was seen today in cardiovascular follow-up. Unfortunately he has remained in A-fib through the night and is mostly tachycardic. His echo was done earlier today and I was able to review that. His LV and RV both appear small and hyperdynamic with near cavity obliteration which is likely consistent with a hypovolemic state either dehydration or perhaps related to anemia. I would encourage him to increase his fluids intake and if his blood pressure does not remain at a reasonable level, would consider giving him some IV fluids. Because he is not doing well on p.o. beta-patsy due to low blood pressure I am going to start him on amiodarone IV and then transition to p.o. Review of Systems Review of Systems: All systems reviewed & are unremarkable except as noted in HPI & below Physical Exam Physical Exam: Awake alert oriented in no apparent distress Respiratory: Decreased breath sounds on the left but are otherwise clear Cardiovascular: Valve sounds are crisp there is no AI appreciated his incision is intact without drainage Results & Data Vital Signs (Past 12 Hours) Vital Signs Temp Pulse Pulse Resp BP Pulse Ox O2 Del Method 02/22/24 12:00 130 H 02/22/24 11:08 36.9 C 140 H 18 104/84 96 Room Air 02/22/24 07:46 36.6 C 100 H 18 124/89 98 Room Air 02/22/24 03:07 36.7 C 121 H 16 114/77 97 Room Air Laboratory Results Abnormal lab results 02/21/24 02/21/24 02/22/24 Range/Units 12:33 14:20 05:54 RBC 2.92 L (4.70-6.10) M/uL Hgb 8.9 L (14.0-18.0) g/dl Hct 26.4 L (42.0-52.0) % RDW Std Deviation 46.5 H (36.4-46.3) fL MPV 8.9 L (9.4-12.4) fL [place] # (Auto) 0.66 H (0.11-0.59) K/uL PT 15.6 H (9.0-12.0) Seconds INR 1.5 H (0.9-1.1) D-Dimer 8640 H* (0-500) ug/L FEU Glucose 102 H (70-99(Fasting)) mg/dl Calcium 8.1 L (8.6-10.3) mg/dl Troponin I High Sens 43.7 H (0-20) pg/ml 02/22/24 Range/Units 07:08 RBC (4.70-6.10) M/uL Hgb (14.0-18.0) g/dl Hct (42.0-52.0) % RDW Std Deviation (36.4-46.3) fL MPV (9.4-12.4) fL [place] # (Auto) (0.11-0.59) K/uL PT 17.0 H (9.0-12.0) Seconds INR 1.6 H (0.9-1.1) D-Dimer (0-500) ug/L FEU Glucose (70-99(Fasting)) mg/dl Calcium (8.6-10.3) mg/dl Troponin I High Sens (0-20) pg/ml Medications Administered Current Inpatient Medications Acetaminophen (Acetaminophen 325 Mg Tab) 650 mg PO Q4H PRN PRN Reason: Pain or Fever Stop: 03/22/24 15:08 Aspirin (Aspirin 81 Mg Ectab) 81 mg PO DAILY EMANUEL Stop: 03/23/24 08:59 Last Admin: 02/22/24 11:17 Dose: 81 mg Sodium Chloride (Nss) 1,000 mls @ 80 mls/hr IV .[id number] [facility] Stop: 02/22/24 23:14 Amiodarone HCl/Dextrose (Nexterone / D5w) 360 mg in 200 mls @ 33.333 mls/hr IV ONE ONE; Protocol Stop: 02/22/24 17:49 Last Admin: 02/22/24 11:51 Dose: 1 mg/min, 33.3 mls/hr Amiodarone HCl/Dextrose (Nexterone / D5w) 360 mg in 200 mls @ 16.667 mls/hr IV .Q12H [facility] Stop: 03/23/24 17:49 Levothyroxine Sodium (Levothyroxine Sodium 125 Mcg Tablet) 125 mcg PO DAILYBB [facility] Stop: 03/23/24 06:29 Last Admin: 02/22/24 06:00 Dose: 125 mcg Polyethylene Glycol (Polyethylene (Miralax) 17 Gm Pack) 17 gm PO DAILY PRN PRN Reason: Constipation Stop: 03/22/24 14:19 Warfarin Sodium (Warfarin Sod 5 Mg Tab) 5 mg PO [id number]@1600 [facility] Stop: 03/24/24 15:59 Warfarin Sodium (Warfarin Sod 10 Mg Tab) 10 mg PO SuTuWeFrSa@1600 [facility] Stop: 03/22/24 20:59 Last Admin: 02/21/24 22:32 Dose: 10 mg
[2024-02-22] MEDS: SODIUM CHLORIDE 0.9% 1,000 ML IV SCH (16:46)
--- NOTE | 2024-02-22 17:24 | Electrocardiogram Report ---
Test Reason : Blood Pressure : */* mmHG Vent. Rate : 131 BPM Atrial Rate : 278 BPM P-R Int : * ms QRS Dur : 92 ms QT Int : 330 ms P-R-T Axes : * 44 -19 degrees QTcB Int : 487 ms Atrial flutter with variable A-V block Nonspecific T wave abnormality Abnormal ECG When compared with ECG of 21-Feb-2024 12:28, ST now depressed in Inferior leads Nonspecific T wave abnormality has replaced inverted T waves in Inferior leads Nonspecific T wave abnormality no longer evident in Anterior leads Confirmed by Prerna Gan (Jacobo) on 02/22/2024 5:24:35 PM Referred By: REFERRED SELF Confirmed By: Prerna Gan
[2024-02-22] MEDS: MULTIVITAMIN TAB PO SCH (17:25)
[2024-02-22] MEDS: FERROUS SULFATE 325 MG TAB PO SCH (17:25)
--- NOTE | 2024-02-22 17:25 | Electrocardiogram Report ---
Test Reason : Blood Pressure : */* mmHG Vent. Rate : 75 BPM Atrial Rate : * BPM P-R Int : * ms QRS Dur : 96 ms QT Int : 396 ms P-R-T Axes : * 44 44 degrees QTcB Int : 442 ms Atrial fibrillation Nonspecific T wave abnormality Abnormal ECG When compared with ECG of 21-Feb-2024 13:25, (unconfirmed) Atrial fibrillation has replaced Atrial flutter Vent. rate has decreased by [address] no longer depressed in Inferior leads Confirmed by Prerna Gan (Jacobo) on 02/22/2024 5:25:16 PM Referred By: REFERRED SELF Confirmed By: Prerna Gan
[2024-02-22] MEDS ORDERED: AMIODARONE / D5W 360 MG/200 ML BAG IV SCH ×2 (17:50→18:30)
--- NOTE | 2024-02-22 18:03 | Hospitalist Progress Note ---
Date of Service February 22, 2024 Assessment & Plan (1) Atrial flutter with rapid ventricular response: Plan: TSH mildly elevated. No alcohol use. Recent CABG and MAZE procedure Continue warfarin for anticoagulation Monitor on telemetry do recurrence Consult cardiology for ongoing management On 02/21 Added amiodarone bolus/drip. Added Dig x1 Concern for bradycardia from Beta-blockers due to baseline bradycardia. Patient converted back to sinus in the aftrernoon. (2) Status post Maze operation for atrial fibrillation: (3) Status post aorto-coronary artery bypass graft: Plan: Continue aspirin Not on statin due to prior intolerance Plan VTE Prophylaxis - warfarin Diet - heart healthy Disposition - admit to PCU Admission and Anticipated Discharge Date Admission Date: February 21, 2024 Subjective 78 yo male reports no new symptoms. Review of Systems Review of Systems: All systems reviewed & are unremarkable except as noted in HPI & below Physical Exam Constitutional: WD/WN, vitals as above Eyes: PERRL, conjunctivae normal, anicteric sclerae ENMT: Mouth: oral mucous membranes not dry Respiratory: normal respiratory effort, lungs clear to auscultation Cardiovascular: Rate/Rhythm: + tachycardic and + irregularly irregular Heart Sounds: no murmur Extremities: + pedal edema (Left > Right) Gastrointestinal (Abdomen): normal bowel sounds, soft, nontender, no hepatosplenomegaly Neurologic: moves all extremities and awake; not confused Psychiatric: A+Ox3, euthymic affect Results & Data Results & Data Vital Signs (Past 12 Hours) Vital Signs Temp Pulse Pulse Resp BP Pulse Ox Pulse Ox 02/22/24 15:09 98 02/22/24 14:42 70 02/22/24 13:00 108 H 02/22/24 12:00 130 H 02/22/24 11:08 36.9 C 140 H 18 104/84 96 02/22/24 07:46 36.6 C 100 H 18 124/89 98 O2 Del Method O2 Del Method 02/22/24 15:09 Room Air 02/22/24 14:42 02/22/24 13:00 02/22/24 12:00 02/22/24 11:08 Room Air 02/22/24 07:46 Room Air PG Care Time/CCT Total # of Minutes Spent Total Time Spent with Patient: Total time spent is greater than 50% in coordination of care (as documented) at patient's floor/unit and/or counseling patient: Coding Level of Care Code 79963 SUB INP/OBS CARE 2/35MIN Diagnoses Atrial flutter with rapid ventricular response I48.92 Status post Maze operation for atrial fibrillation Z98.890; Z86.79 Status post aorto-coronary artery bypass graft Z95.1 Time Spent (min) 35
[2024-02-22] MEDS: AMIODARONE 200 MG TAB PO SCH (18:05)
[2024-02-23 06:53] LABS: Prothrombin Time 20.8 Seconds (9.0-12.0)
--- NOTE | 2024-02-23 08:46 | Cardiology Progress Note ---
Date of Service February 23, 2024 Assessment & Plan (1) Atrial flutter with rapid ventricular response: (2) Hypotension: (3) Status post aorto-coronary artery bypass graft: (4) H/O aortic valve replacement: (5) Status post Maze operation for atrial fibrillation: (6) Acute blood loss anemia: Plan: This postop. Will follow his blood count would encourage him to take a multivitamin and iron at least for the next month Plan Pmhx: 1. Status post bio AVR ( 27 mm Magna Ease valve) CABG x 4 (LIMALAD, SVGPDA, SVGOM, SVGdiagonal), QUITA clip and maze on 01/2024 1b. Preop catheterization: 60% lesion in the proximal LAD. 90% lesion in the mid LAD; 80% lesion in the first diagonal; circumflex: 90% lesion in the first marginal; 60% lesion in the proximal RCA, 50% lesion in the mid RCA, 50% lesion in the distal RCA 2. Hyperlipidemia 3. Hypertension 4. Paroxysmal atrial fibrillation 5. Echocardiogram 02/22/2024 showing hyperdynamic LV function with an EF of 70%, mild concentric LVH, near LV cavity obliteration in peak systole consistent with hypovolemic state, LV akinesis consistent with patient's postop state, well- seated bioprosthetic aortic valve, circumferential pericardial effusion consistent with patient's postop CABG and AVR state, no evidence of tamponade Mr. Valentine has returned to a normal sinus rhythm and with that his blood pressure is much better. At this point he is taking amiodarone 200 mg twice daily and should continue for 1 month and then drop down to 200 mg daily. His INR will need to be checked within the next 2 or 3 days. I see that he has an anticoagulation clinic appointment on 02/25/2024. The amiodarone will cause a rise in his INR and so will need to be followed closely. He continues aspirin for his history of CABG and aortic valve replacement. He is not having any concerning anginal symptoms. His echo shows stable LV function. He can be discharged today from a cardiac perspective. He can resume his home physical therapy. He has follow-up scheduled in 2 weeks at the clinic. Admission and Anticipated Discharge Date Admission Date: February 21, 2024 Subjective Mr. Valentine converted to a sinus rhythm yesterday afternoon and has maintained it thus far. His blood pressure has normalized. He feels well today and is hoping to discharge. Review of Systems Review of Systems: All systems reviewed & are unremarkable except as noted in HPI & below Physical Exam Constitutional: WD/WN, vitals as above Respiratory: normal respiratory effort, lungs clear to auscultation Cardiovascular: Rate/Rhythm: regular rate and regular rhythm Heart Sounds: + murmur (2/6 llsb ) Extremities: no edema Neurologic: moves all extremities and awake Psychiatric: A+Ox3, euthymic affect Results & Data Vital Signs (Past 12 Hours) Vital Signs Temp Pulse Pulse Resp BP Pulse Ox O2 Del Method 02/23/24 07:00 37.0 C 65 18 131/83 98 Room Air 02/23/24 03:12 36.7 C 65 20 127/73 97 Room Air 02/22/24 23:35 65 02/22/24 22:43 37.6 C H 70 18 157/80 H 98 Room Air
[2024-02-23 09:08] LABS: Basophils # (auto) 0.03 K/uL (0.00-0.20); Basophils % (auto) 0.5 %; Eosinophils # (auto) 0.26 K/uL (0.00-0.50); Eosinophils % (auto) 4.4 %; Hematocrit (blood only) 26.5 % (42.0-52.0); Hemoglobin 8.6 g/dl (14.0-18.0); Immature Granulocytes # (auto) 0.02 K/uL (0.01-0.20); Immature Granulocytes % (auto) 0.3 %; Lymphocytes # (auto) 1.13 K/uL (1.20-3.40); Lymphocytes % (auto) 19.3 %; Mean Corpuscular Hemoglobin 29.7 pg (25.0-34.0); Mean Corpuscular Hgb Conc 32.5 g/dL (32.0-36.0); Mean Corpuscular Volume 91.4 fL (80.0-100.0); Mean Platelet Volume 8.9 fL (9.4-12.4); Monocytes # (auto) 0.58 K/uL (0.11-0.59); Monocytes % (auto) 9.9 %; Neutrophils # (auto) 3.83 K/uL (1.40-6.50); Neutrophils % (auto) 65.6 %; Platelet Count 287 K/uL (130-400); RDW Coefficient of Variation 14.3 % (11.5-14.5); RDW Standard Deviation 47.2 fL (36.4-46.3); White Blood Count 5.85 K/ul (4.8-10.8)
[2024-02-23 09:14] LABS: Magnesium 2.2 mg/dl (1.7-2.4)
[2024-02-23 09:34] LABS: Ferritin 406.8 ng/ml (8-388)
[2024-02-23 10:38] LABS: Folate (Folic Acid),Ser orPlas 18.47 ng/ml (>5.38)
[2024-02-23 10:49] VITALS: PULSE 68; RESP 20; TEMP 97.9; O2SAT 97
--- NOTE | 2024-02-23 11:46 | Discharge Summary ---
Discharge Summary Date of Service February 23, 2024 Principal Dx & Hospital Course #1 = Principal Diagnosis (1) Atrial flutter with rapid ventricular response: Presented with rapid atrial flutter which then converted to atrial fibrillation after IV lopressor on admission He is 2 weeks out from CABG/MAZE/AVR procedures at [place] TSH mildly elevated. No alcohol use. ECHO here with hyperdynamic right and left ventricles, otherwise ok Started on amiodarone load here, had one dose of digoxin, and converted to NSR. He has some baseline bradycardia at times so beta blockers were stopped Continue warfarin for anticoagulation-INR 2.0 now and has INR appt check in 2 days Consult cardiology appreciated (2) Status post Maze operation for atrial fibrillation: as above (3) Status post aorto-coronary artery bypass graft: Continue aspirin Not on statin due to prior intolerance as above (4) Acute blood loss anemia: hgb 8.6, normocytic, likely some blood loss anemia from surgery Checked iron studies, B12, folate--> transferrin sat low at 9%, B12 low at 199, folate normal TSH elevated at 7--> check as outpt in a few weeks Started FeSO4 325mg po bid x 1 month, and gave B12 1000 mcg IM x 1 and recommend starting B12 1000 mcg po daily--> follow BCC, B12, Fe levels in 1 month w/ PCP (5) Hypothyroidism: TSH elevated at 7 on admission, in setting of recent major cardiac surgery, likely missed some doses of LT4 Recommend repeat check in 1 month Is now on amiodarone so will need to be closely monitored (6) H/O aortic valve replacement: as above Plan VTE Prophylaxis - warfarin. D-dimer was quite elevated but CTA Chest neg for PE, has changes from recent open heart surgery Disposition - dc to home and resume home health with PT, previous post-op restrictions in place Notes For Next Care Provider Check INR in 2 days Check CBC, TSH , Fe levels, B12 level in 1 month Medication Changes From Visit Added amiodarone 200mg po bid x 1 month, then can decrease to 200mg po daily Added B12 1000 mcg po daily Added FeSO4 325mg po bid x 1 month Admission HPI Per Admitting Provider Andres Valentine is a 78 year old male who presents to the ER with tachycardia. He reports having a coronary artery bypass with MAZE procedure and valve replacement performed at [facility]. He had been doing well following his surgery. He notes his warfarin was interrupted for his surgery. Since yesterday he has felt poorly, did not sleep well last night and felt like he over did PT yesterday. Fron the afternoon he appeared more on the pale side and had a loss of appetite. By 9am this morning he felt a little better and color improved but his bloos pressure remained low and pulse was high on his BP cuff therefore decided to come to the ER. He is not on metoprolol as blood pressure has been on the low side sionce his operation even off his prior valsartan. He is not on a statin due to side effects with joint aches many years ago. He restarted warfarin on February 15. Discharge Exam Constitutional WD/WN, vitals as above Neck trachea midline, no thyromegaly Respiratory normal respiratory effort, lungs clear to auscultation Cardiovascular RRR, no murmur, no edema Extremities: + edema (mild left leg swelling,vein harvest site) Chest (Breasts) Chest: + abnormal inspection of chest (sternotomy incision healing,scabbed over,no erythema or drainage) Musculoskeletal Extremities: no cyanosis and no clubbing Skin no rashes, warm and dry Neurologic moves all extremities and awake; no focal motor deficits Psychiatric A+Ox3, euthymic affect Discharge Plan Discharge Items Patient Disposition: Home - Home Health Services Reason For Visit: ATRIAL FLUTTER RVR Discharge Diagnosis: Rapid atrial flutter Anemia-secondary to iron deficiency and vitamin B12 deficiency Condition on Discharge: Good Activity: Resume your previous activity Activity Comment: resume home PT and same post-operative instructions from your surgeon Non-emergency contact: Primary Care Provider and Architectural Sales Consultant Call non-emergency contact if: you have any medication questions and your symptoms worsen Follow-up/Referrals: Jona Butler DO [Physician] - (Please follow up within 2 weeks) Melissa Lawson MD [Primary Care Provider] - (Please follow up within 1-2 weeks) Diet: Heart Healthy Addtl Attending Provider Instructions: You were admitted with a rapid, irregular heart rhythm called atrial flutter. Fortunately, this converted back to a normal rhythm and you are feeling better. Please continue on the amiodarone 200mg twice a day for 1 month, then decrease to 200mg once daily. Your Architectural Sales Consultant will follow you for any side effects or issues with this new medication. Please keep your appointment with the anticoagulation clinic in 2 days. You were found to be anemic which is from your recent surgery and an iron and a vitamin B12 deficiency. Please take the iron tablets and vitamin B12 pills (both are over the counter) and have your PCP check your blood counts in 1 one month. Pending Studies at Discharge: No Stand-Alone Forms: My [facility] [place], Smoking Cessation Medications and DC Order Prescriptions: New ferrous sulfate 325 mg (65 mg iron) Tablet,Delayed Release (Dr/Ec) 325 mg PO BIDM Qty: 60 0RF Rx Instructions: Over the counter amiodarone 200 mg Tablet 200 mg PO BIDM Qty: 60 0RF cyanocobalamin (vitamin B-12) 1,000 mcg capsule 1,000 mcg PO DAILY Qty: 30 0RF Rx Instructions: Over the counter Continued warfarin 5 mg tablet See Rx Instructions PO UD Qty: 160 1RF Rx Instructions: 5mg Friday and , 10mg x 5 days per [facility] orally use as directed; levothyroxine 125 mcg tablet 125 mcg PO DAILY aspirin 81 mg Tablet 81 mg PO DAILY Discharge Orders: Discharge Order (Routine); Ordered 02/23/24 Ordered By: Mandie Anthony Admission Data Admit Date/Time: 02/21/24 13:40 Attending Provider: Mandie Anthony Admit Provider: Dash Conde Primary Care Provider: Melissa Lawson Other Providers: Jona Butler; Dash Nunez; Dash Conde; Prerna Gan; [facility] Hospital Stay Data Consultations 02/21/24 13:33 ED Decision to Admit Stat 02/21/24 14:40 Consult Cardiology Routine Diagnostic Imagining Performed 02/21/24 14:58 CT for pulmonary embolism PE [CT angio chest PE protocol] Stat ECHO Pending Results Patient Have Any Pending Studies at Discharge: No Discharge Instructions Given to Patient (Per Discharging Provider) You were admitted with a rapid, irregular heart rhythm called atrial flutter. Fortunately, this converted back to a normal rhythm and you are feeling better. Please continue on the amiodarone 200mg twice a day for 1 month, then decrease to 200mg once daily. Your Architectural Sales Consultant will follow you for any side effects or issues with this new medication. Please keep your appointment with the anticoagulation clinic in 2 days. You were found to be anemic which is from your recent surgery and an iron and a vitamin B12 deficiency. Please take the iron tablets and vitamin B12 pills (both are over the counter) and have your PCP check your blood counts in 1 one month. Total Time Total Time Spent Total Time Spent (In Minutes): 35 min Total Time Includes: Examination of the Patient, Discharge Planning and Medication Reconciliation Coding Level of Care Code 66810 INP/OBS DISCH >30 MIN Diagnoses Atrial flutter with rapid ventricular response I48.92 Status post Maze operation for atrial fibrillation Z98.890; Z86.79 Status post aorto-coronary artery bypass graft Z95.1 Acute blood loss anemia D62 Hypothyroidism E03.9 H/O aortic valve replacement Z95.2
[2024-02-23 12:04] VITALS: BP 93/77
[2024-02-23] MEDS: CYANOCOBALAMIN 1000 MCG/ML VIAL IM ONE (12:06)
[2024-02-23] MEDS ORDERED: WARFARIN SOD 5 MG TAB PO SCH (16:00)
== END 2024-02-23 12:38 | disposition home health service (06) | DRG 309 ==
LOC: ED 12:19 → 2E 13:40 → SUATTDRO 13:40 → 2E 14:44
DX: E03.9 Hypothyroidism, unspecified; Z79.01 Long term (current) use of anticoagulants; I48.0 Paroxysmal atrial fibrillation; I48.92 Unspecified atrial flutter; I10 Essential (primary) hypertension; D62 Acute posthemorrhagic anemia; Z79.890 Hormone replacement therapy; Z95.2 Presence of prosthetic heart valve; D51.9 Vitamin B12 deficiency anemia, unspecified; Z98.890 Other specified postprocedural states; Z79.82 Long term (current) use of aspirin; E78.5 Hyperlipidemia, unspecified; Z95.1 Presence of aortocoronary bypass graft; Z87.891 Personal history of nicotine dependence; I95.9 Hypotension, unspecified